=== PATIENT | male | born 1940 | race Caucasian/White ===

== ENCOUNTER 2019-11-12 11:41 | Emergency (ER) | payer MEDICARE, SELFPAY ==
--- NOTE | ~2019-11-12 | XR_ITS ---
XR wrist LT min 3V DATE: 11/12/2019 11:56 INDICATION: Fall. Left wrist injury, pain TECHNIQUE: 4 views COMPARISON: None FINDINGS: Diffuse osteopenia. There is osteoarthritis at the first carpometacarpal, first metacarpophalangeal and interphalangeal j oints. There is narrowing at the radioscaphoid joint consistent with osteoarthritis. No fracture, dislocation, periosteal reaction or bone destruction is detected. IMPRESSION: Polyarticular osteoarthritis; no fracture or dislocation is detected Reviewed, dictated and finalized at location B. MAKER IMPRESSION: Polyarticular osteoarthritis; no fracture or dislocation is detecte d
[2019-11-12 12:03] VITALS: BP 158/72; PULSE 100; RESP 20; TEMP 36.7; O2SAT 97
--- NOTE | 2019-11-12 14:17 | ED.GENADULT ---
HPI - General Adult General Chief complaint: Extremity Injury, Upper Stated complaint: left wrist inj Time Seen by Provider: 11/12/19 13:42 Source: patient Mode of arrival: ambulatory Limitations: no limitations History of Present Illness HPI narrative: Patient is a 79-year-old male who presents to emergency department for evaluation of left wrist pain noting aching pain to the left wrist worse with activity and movement that occurred after a step broke causing him to fall injuring the left wrist patient notes aching pain to the dorsal surface of the wrist with slight swelling patient denies other injuries or complaints and presents per private vehicle in no distress resting comfortably in the room Related Data Home Medications Medication Instructions Recorded Confirmed acetaminophen 325 mg capsule 325 mg PO Q6H PRN 08/02/19 08/14/19 aspirin 81 mg tablet,delayed 81 mg PO DAILY 08/02/19 08/14/19 release cholecalciferol (vitamin D3) 50 2,000 unit PO DAILY 08/02/19 08/14/19 mcg (2,000 unit) tablet esomeprazole magnesium 40 mg 40 mg PO DAILY 08/02/19 08/14/19 capsule,delayed release pitavastatin calcium 4 mg tablet 4 mg PO DAILY 08/02/19 08/14/19 Allergies Allergy/AdvReac Type Severity Reaction Status Date / Time No Known Allergies Allergy Unverified 11/12/19 13:32 Review of Systems Review of Systems: All systems reviewed & are unremarkable except as noted in HPI and below PMFSH Past Medical History Medical History Gastroesophageal reflux disease Social History Social History Smoking status: Heavy tobacco smoker Alcohol intake: current Exam Narrative: Exam Narrative: GENERAL: Well-appearing, well-nourished, and in no acute distress. HEAD: Normocephalic, atraumatic. EYES: PERRLA and EOMI. ENT: Nares clear, no rhinorrhea or epistaxis. Mucous membranes moist. EXTREMITIES: Normal range of motion. No edema. Swelling and tenderness over the dorsal aspect of the left wrist joint over the distal radius SKIN: Warm, dry, no rash. NEURO: No focal deficits. Alert and oriented x3. Neurovascularly intact. Capillary refill less than 2 seconds PSYCH: Normal mood and affect. Course Course Emergency Course: Patient in the room in no distress aware of case findings treatment plan and diagnosis Vital Signs Vital signs: Vital Signs Temperature 98.1 F 11/12/19 12:03 Pulse Rate 100 11/12/19 12:03 Respiratory Rate 20 11/12/19 12:03 Blood Pressure 158/72 H 11/12/19 12:03 Pulse Oximetry 97 11/12/19 12:03 Temperature 98.1 F 11/12/19 12:03 Pulse Rate 100 11/12/19 12:03 Respiratory Rate 20 11/12/19 12:03 Blood Pressure 158/72 H 11/12/19 12:03 Pulse Oximetry 97 11/12/19 12:03 Medical Decision Making MDM Narrative Medical decision making narrative: Patients injury or pain is consistent with musculoskeletal etiology. No signs of neurological or vascular compromise on exam. Compartments and tisues are soft without signs of compartment syndrome. Pain is felt appropriate for further evaluation on an outpatient basis. Vital Signs Vital Signs: Vital Signs Temperature 98.1 F 11/12/19 12:03 Pulse Rate 100 11/12/19 12:03 Respiratory Rate 20 11/12/19 12:03 Blood Pressure 158/72 H 11/12/19 12:03 Pulse Oximetry 97 11/12/19 12:03 Temperature 98.1 F 11/12/19 12:03 Pulse Rate 100 11/12/19 12:03 Respiratory Rate 20 11/12/19 12:03 Blood Pressure 158/72 H 11/12/19 12:03 Pulse Oximetry 97 11/12/19 12:03 Imaging Data Radiologist's impression: ITS Impressions Wrist X-Ray 11/12/19 12:03 IMPRESSION: Polyarticular osteoarthritis; no fracture or dislocation is detected Discharge Plan Discharge Clinical Impression: Left wrist injury Patient Disposition: Home, Self-Care Condition: Stable Instructions: Antibiotic Form, A
== END 2019-11-12 14:35 | disposition home or self-care (01) ==
PROVIDERS: Emergency Provider Family Medicine; PCP Family Medicine
DX: S69.92XA Unspecified injury of left wrist, hand and finger(s), initial encounter (principal); K21.9 Gastro-esophageal reflux disease without esophagitis; F17.200 Nicotine dependence, unspecified, uncomplicated; W10.9XXA Fall (on) (from) unspecified stairs and steps, initial encounter
CPT/HCPCS: 73110; 99283

== ENCOUNTER → 2020-08-13 12:07 | Outpatient (CLI) | payer MEDICARE, SELFPAY ==
--- NOTE | ~2020-08-13 | MR_ITS ---
EXAMINATION: MR lumbar spine wo [facility] EXAM DATE: 08/13/2020 13:26 INDICATION: Lumbar radiculopathy lumbar radiculopathy . TECHNIQUE: Multi-sequential, multiplanar MR images of the lumbar spine were obtained without contrast . Sagittal T1, T2, T2 fat saturation images. Axial T2 weighted images. Comparison is made to prior examination from 03/02/2019. FINDINGS: There is 5 mm anterolisthesis L4 on L5 without spondylolysis. Mild to moderate disc disease at this level, mild at the lumbar levels above this. The conus medullaris terminates at the L1/2 lev el and has normal signal intensity and morphology. Some scattered vertebral body hemangiomata. Rick basil soft tissue is unremarkable. Level by level evaluation: T12-L1: Disc does not extend beyond the endplate margin. Facet arthropathy: None. Neural foraminal stenosis: No stenosis. Central canal stenosis: No stenosis. L1-L2: There is a mild diffuse disc bulge. Facet arthropathy: Mild. Neural foraminal stenosis: No stenosis. Central canal stenosis: No stenosis. L2-L3: There is a mild diffuse disc bulge. Facet arthropathy: None. Neural foraminal stenosis: No stenosis. Central canal stenosis: No stenosis. L3-L4: There is a mild diffuse disc bulge. Facet arthropathy: Mild. Neural foraminal stenosis: Mild bilateral. Central canal stenosis: No stenosis. L4-L5: There is a mild to moderate diffuse disc bulge. Facet arthropathy: Moderate. Neural foraminal stenosis: Mild to moderate bilateral. Central canal stenosis: Mild to moderate. L5-S1: There is a mild diffuse disc bulge. Facet arthropathy: Mild to moderate. Neural foraminal stenosis: No stenosis. Central canal stenosis: No stenosis. Difficult to appreciate any significant interval change compared to prior study. IMPRESSION: 1. L4-5 grade 1 anterolisthesis, mild to moderate stenosis. Reviewed, dictated and finalized at location A. NE FIRE FIGHTER
== END ==
PROVIDERS: Visit Provider Nurse Practitioner Adult Health
DX: M54.16 Radiculopathy, lumbar region (principal); M43.16 Spondylolisthesis, lumbar region
CPT/HCPCS: 72148

== ENCOUNTER → 2020-08-28 15:05 | Outpatient (CLI) | payer MEDICARE, SELFPAY ==
--- NOTE | ~2020-08-28 | XR_ITS ---
EXAMINATION: XR lumbar spine 2-3V DATE: 08/28/2020 15:45 INDICATION: Low back pain with numbness and tingling down the left leg TECHNIQUE: 3 standing lateral views of the lumbar spine were obtained in neutral position and with fl exion and extension. COMPARISON: 08/13/2020 FINDINGS: 5 mm anterolisthesis L4 on L5 which is unchanged with flexion or extension. Vertebral body heights ar e normal. Mild to moderate disc height loss at L4-L5. Severe bilateral facet osteoarthritis at L4-L5 and L5-S1. Atherosclerotic aorta. IMPRESSION: 1. 5 mm anterolisthesis L4 on L5 which is unchanged with flexion or extension. Reviewed, dictated and finalized at location A. L GRINDER
== END ==
PROVIDERS: Visit Provider Nurse Practitioner Adult Health
DX: M54.5 Low back pain (principal)
CPT/HCPCS: 72100

== ENCOUNTER 2022-04-08 07:56 | Observation (INO) | payer MEDICARE, SELFPAY ==
[2022-04-08] VITALS (43 sets, daily range): BP systolic 93–149; BP diastolic 39–93; PULSE 78–114; RESP 18–28; TEMP 36.4–37; O2SAT 92–100; BMI 21.7; BMI 21.3
--- NOTE | 2022-04-08 | ECHO_ITS ---
Patient Info Name: Blas De Oliveira Age: 81 years : 1940 Gender: Male Ht: 68 in Wt: 147 lbs BSA: 1.79 m2 HR: 94 bpm BP: 147 / 74 mmHg Heart Rhythm: Sinus Rhythm Exam Date: 04/08/2022 2:53 PM Exam Location: [facility] Patient Status: Emergency Admit Date: 04/08/2022 Staff Ordering Physician: Birgit Richardson Motorcycle Service Technician: Rene Goetz, JR, RT Attending Provider: Noelle Lindsey MD Referring Physician: Debra HOUSTON; Exam Type: CA echo doppler color flow Study Info Indications R06.00 - Dyspnea, unspecified Complete two-dimensional, color flow and Doppler transthoracic echocardiogram is performed. Strain analysis performed. Summary 1. Technically difficult study with limited views. Regional wall motion assessment limited due to poor endomyocardial border definition in several views. 2. Left ventricular chamber dimension is normal. 3. Left ventricular systolic function is hyperdynamic, estimated at >70%. 4. There is mildly increased left ventricular wall thickness. 5. The left ventricular diastolic function is grade I diastolic dysfunction. 6. Global longitudinal strain is mildly elevated at -17 %. 7. There is mild mitral valve regurgitation. Left Ventricle Left ventricular chamber dimension is normal. Left ventricular systolic function is hyperdynamic, estimated at >70%. There is mildly increased left ventricular wall thickness. The left ventricular diastolic function is grade I diastolic dysfunction. Global longitudinal strain is mildly elevated at -17 %. Technically difficult study with limited views. Regional wall motion assessment limited due to poor endomyocardial border definition in several views. Right Ventricle Right ventricular chamber dimension is normal. Right ventricular systolic function is normal. Left Atria Left atrial chamber dimension is mildly enlarged. Right Atria Right atrial chamber dimension is mildly enlarged. Aortic Valve The aortic valve is not well visualized. There is mild aortic valve sclerosis. There is no aortic valve stenosis. There is no aortic valve regurgitation. Pulmonic Valve The pulmonic valve is not well visualized. Mitral Valve The mitral valve has normal leaflets. There is mild mitral valve regurgitation. The mitral valve annulus is mildly calcified. Tricuspid Valve The tricuspid valve leaflets are normal. There is trace tricuspid valve regurgitation. Unable to estimate PA systolic pressure due to poor spectral resolution of tricuspid regurgitant jet velocity. Pericardium/Pleural The pericardium appears normal. There is no pericardial effusion. Aorta The aortic root size at the sinus of Valsalva is mildly dilated. There is mild-moderate aortic atherosclerosis. Left Ventricular Outflow Tract Name Value Normal LVOT 2D LVOT Diameter 2.1 cm LVOT Doppler LVOT Peak Gradient 8 mmHg LVOT Mean Gradient 4 mmHg LVOT VTI 28 cm LVOT VTI/AV VTI Ratio 0.9 LVOT Stroke Volume 101
--- NOTE | ~2022-04-08 | CT_ITS ---
EXAMINATION: CTA chest PE protocol DATE: 04/08/2022 11:36 INDICATION: Dyspnea. Fever, cough Positive d-dimer. TECHNIQUE: Computed tomography angiography (CTA) of the chest was performed with 100 mL Omnipaque-350 intravenous contrast timed to evaluate the pulmonary arteries. Coronal maximum intensity projection 3D-reconstructions were created by the technologist. Automated exposure control and iterative reconst ruction technique were employed. Exam dose: 259.62 mGy-cm total exam DLP. COMPARISON: 04/08/2022 portable AP chest. FINDINGS: There is diagnostic contrast enhancement of the pulmonary arteries. No central pulmonary e mbolism. The peripheral pulmonary arteries are not optimally demonstrated, particularly in the lower lobes, due to prominent motion. Status post sternotomy. There is prominent atherosclerotic calcification of the thoracic aorta, great vessels and coronary ar teries. No thoracic aortic aneurysm or dissection. Normal heart size. No pericardial or pleural effusion. Bilateral apical scarring. Emphysematous changes. No pulmonary consolidation is noted. Limited stevo luation of the lungs due to motion. Calcified hepatic and splenic granulomas. Normal morphology of the adrenal glands. Small sliding hiatal hernia. 3.8 and 1.6 cm right renal cysts. Very prominent calcification of the abdominal aorta and severe calcification of the renal arteries an d superior mesenteric artery. Severe degenerative disc disease of lower cervical spine. Degenerative spurring of thoracic spine. No suspicious osteolytic or osteosclerotic lesions. IMPRESSION: No central pulmonary embolism Emphysema Status post sternotomy Small sliding hiatal hernia Right renal cysts Reviewed, dictated and finalized at Location A. Reviewed, dictated and finalized at location A.
--- NOTE | ~2022-04-08 | XR_ITS ---
EXAMINATION: XR chest 1V portable DATE: 04/08/2022 08:33 INDICATION: Cough TECHNIQUE: frontal view of the chest was obtained. COMPARISON: Chest radiograph dated 09/24/2011 FINDINGS: Perihilar mild bronchial wall thickening. No focal airspace opacities, pulmonary edema, pleural effus ion or pneumothorax. The cardiomediastinal silhouette is normal. Median sternotomy wires and mediasti nal surgical clips are seen, likely from prior coronary artery bypass grafting. IMPRESSION: 1. Mild perihilar bronchial wall thickening without focal airspace disease which could be seen with juan massey. Reviewed, dictated and finalized at location B. IMPRESSION: 1. Mild perihilar bronchial wall thickening without focal airspace disease whic h could be seen with bronchitis.
--- NOTE | 2022-04-08 08:21 | ECG_ITS ---
Measurements Intervals [place] Rate: 108 P: 26 SC: 160 QRS: 74 QRSD: 101 T: 73 QT: 327 QTc: 440 Interpretive Statements SINUS TACHYCARDIA BORDERLINE ST-T WAVE ABNORMALITY- ANTEROLATERAL LEADS BASELINE ARTIFACT- II, III, V4-V6 ABNORMAL ECG Electronically Signed On 04-08-2022 16:28:42 CDT by Gavin Bagley D.O.
--- NOTE | 2022-04-08 08:21 | ED.FEVER ---
HPI - Fever General Chief Complaint: Fever Stated Complaint: Im Sick , Cold, Cough, Vomiting Time Seen by Provider: 04/08/22 07:58 History of Present Illness HPI Narrative: The patient is an 81-year-old male with a history of hypertension, hyperlipidemia presenting to the emergency department for evaluation of shortness of breath. Patient states that he has had cough, runny nose, borderline fever over the past 36 hours. 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 He reports difficulty breathing and dry cough. He denies wheezing or history of COPD. He does not utilize any home oxygen. He reports shortness of breath worsens with any activity. He denies leg swelling, calf pain, recent car or air travel, no recent history of surgical procedures. He denies history of blood clot or DVT. He denies history of heart attack and denies any current chest pain. He does report nausea as well as a few episodes of nonbloody, nonbilious emesis but denies any abdominal pain. Patient reports history of COVID vaccination and denies history of symptomatic COVID infection. Related Data Home Medications Medication Instructions Recorded Confirmed acetaminophen 325 mg capsule 325 mg PO Q6H PRN Pain 08/02/19 04/08/22 aspirin 81 mg tablet,delayed 81 mg PO HS 08/02/19 04/08/22 release (Adult Aspirin Regimen) cholecalciferol (vitamin D3) 50 2,000 unit PO HS 02/19/20 04/08/22 mcg (2,000 unit) tablet cyanocobalamin (vitamin B-12) 1,000 mcg PO HS 02/11/22 04/08/22 1,000 mcg tablet amlodipine 10 mg-benazepril 40 mg 1 cap PO HS 04/08/22 04/08/22 capsule celecoxib 200 mg capsule 200 mg PO HS PRN pain 04/08/22 04/08/22 pitavastatin calcium 4 mg tablet 4 mg PO HS 04/08/22 04/08/22 (Livalo) tramadol 50 mg tablet (Ultram) 100 mg PO QID PRN pain 04/08/22 04/08/22 Allergies Allergy/AdvReac Type Severity Reaction Status Date / Time No Known Allergies Allergy Unverified 04/08/22 16:26 Review of Systems Review of Systems: CONSTITUTIONAL: Reports subjective fever and chills EYES: Denies visual changes, redness, or discharge. ENT: Reports rhinorrhea, congestion, denies sore throat CARDIOVASCULAR: Denies chest pain, palpitations, or edema. RESPIRATORY: Reports cough and shortness of breath GASTROINTESTINAL: Denies abdominal pain, reports nausea and vomiting, denies diarrhea GENITOURINARY: Denies dysuria or hematuria. SKIN: Denies rash or itching. MUSCULOSKELETAL: Denies back pain, joint pain, or myalgia. NEUROLOGIC: Denies headache, numbness, or weakness. [facility] Past Medical History Medical History BMI 24.0-24.9, adult BMI 25.0-25.9,adult Gastroesophageal reflux disease Peripheral arterial disease (~12/08/20) SAEED 0.55 left foot on home a visit by insurance 12/08/2020 Vitamin B12 deficiency anemia Vitamin B12 low at 155 on 08/10/2021 Vitamin D deficiency, unspecified Social History Social History Smoking packs per day: 1.5 Smoking cigarettes per day: 30.0 Years smoked: 60 Smoking pack-years: 90.00 Smoking status: Current every day smoker Tobacco type: cigarettes Alcohol intake: current Drinks per week: 0 Substance use: never Spiritual care concerns: No Exam Narrative: GENERAL: Awake, alert, unwell appearing HEAD: Normocephalic, atraumatic. EYES: PERRLA and EOMI. ENT: Nares clear, no rhinorrhea or epistaxis. Mucous membranes dry NECK: Supple. CHEST: Tachypneic, hypoxic, 89% on room air, coarse respirations bilaterally with diminished breath sounds in the lung bases, no expiratory wheezing, no crackles HEART: Regular rate, sinus rhythm ABDOMEN:Non distended, non tender EXTREMITIES: Normal range of motion. No edema. SKIN: Warm, dry, no rash. NEURO:No focal deficits. Alert and oriented x3 Course Vital Sign
[2022-04-08] MEDS: SODIUM CHLORIDE 0.9% IV 1,000 ML 999 ML IV CONT (08:44)
[2022-04-08] MEDS: ONDANSETRON INJ 4 MG/2 ML VIAL IV PUSH (08:44)
[2022-04-08] MEDS: methylPREDNISolone SOD SUCC 125 MG VIAL IV PUSH (09:02)
[2022-04-08 09:16] LABS: Appearance Urine Clear (Clear); Bilirubin Urine 1+ (Negative); Blood Urine Trace-lysed (Negative); Color Urine Yellow (Yellow); Glucose Urine UA Negative (Negative); Ketones Urine Negative (Negative); Leukocyte Esterase Ur 1+ LEU/UL (Negative); Nitrate Urine Negative (Negative); Protein Urine 1+ mg/dL (Negative); pH Urine 5.5 (5.0-9.0)
[2022-04-08 09:17] LABS: Basophils Absolute Auto 0.1 K/mm3 (0.0-0.1); Basophils Percent Auto 0.3 % (0.2-1.2); Eosinophils Absolute Auto 0.2 K/mm3 (0-0.3); Hematocrit 41.2 % (42.0-52.0); Immature Granulocyte Absolute 0.14 K/mm3 (0.00-0.031); Immature Granulocyte Percent A 0.7 % (0-0.5); Lymphocytes Absolute Auto 1.14 K/mm3 (0.9-3.2); Mean Corpuscular HGB Conc 31.6 g/dl (32-36); Mean Corpuscular Hemoglobin 29.1 pg (26-34); Mean Corpuscular Volume 92.4 fl (80-100); Mean Platelet Volume 10.6 fl (7.4-10.4); Monocytes Absolute Auto 2.1 K/mm3 (0.1-0.6); Neutrophils Absolute Auto 15.3 K/mm3 (1.3-6.7); Platelet Count Result 182 k/mm3 (150-375); Red Blood Count 4.46 M/mm3 (4.6-6.20); Red Cell Distribution Width 13.1 % (11.5-14.5); White Blood Count 18.9 K/mm3 (4.5-10.0)
[2022-04-08 09:22] LABS: Mucus Urine Rare /lpf; Squamous Epithelial Cell Urine Rare /hpf (Few)
[2022-04-08 09:28] LABS: Lactic Acid Reflex 1.3 mmol/L (0.7-2.0)
[2022-04-08 09:31] LABS: Alanine Aminotransferase 9 U/L (6-50); Albumin Level 4.4 g/dL (3.5-5.1); Alkaline Phosphatase 70 U/L (38-126); Anion Gap 8 mmol/L (8-16); Aspartate Amino Transferase 22 U/L (17-59); Bilirubin,Total 0.7 mg/dL (0.2-1.3); Blood Urea Nitrogen 23 mg/dL (9-20); CRP 6.5 mg/dL (<1.0); Calcium 9.1 mg/dL (8.4-10.2); Carbon Dioxide 28 mmol/L (22-30); Chloride 103 mmol/L (98-107); Estimated CRCL calculation 47 ml/min; Estimated Glomerular Filt Rate > 60; Glucose 123 mg/dL (65-110); Potassium 4.5 mmol/L (3.4-5.0); Sodium 139 mmol/L (137-145)
[2022-04-08 09:35] LABS: Add Urine Microscopic? YES
[2022-04-08 09:39] LABS: INR 1.1; NT Pro B Type Natriuretic Pept 1990 pg/mL (5-100)
[2022-04-08 09:40] LABS: Partial Thromboplastin Time 27.5 SECONDS (22.3-36.8)
[2022-04-08 09:44] LABS: Troponin I 0.157 ng/mL (0.000-0.034)
--- NOTE | 2022-04-08 09:49 | PC.NURSE ---
audra MCMAHON called regarding outstanding order for breathing treatment.
[2022-04-08 09:56] LABS: SARS-CoV-2 RNA PCR Negative
[2022-04-08] MEDS: ALBUTEROL SULFATE NEB 2.5 MG/3 ML INH 5 MG INHALATION ×3 (10:04→20:01)
[2022-04-08] MEDS: IPRATROPIUM BR 0.02% INH SOLN 0.5 MG/2.5 ML VIAL INHALATION ×2 (10:04→20:00)
[2022-04-08 10:48] LABS: D Dimer 0.64 ug/mL (<0.48)
--- NOTE | 2022-04-08 13:17 | PM.IMHP ---
H&P: HPI History of Present Illness Date/Time: 04/08/22 13:00 Chief Complaint: Fever and Dyspnea Narrative: This 81-year-old male patient with significant past medical history of hypertension, hyperlipidemia, coronary artery disease status post bypass in the 1960s, and chronic nicotine abuse presents to the emergency room complaints of having subjective fever, stating he is sick, has had vomiting, chronic cough and shortness of breath. He had worsened over the past 24-48 hours since he has developed all of his symptoms including a productive cough, runny nose, scratchy throat, back pain and vomiting after he takes his medications. He has felt feverish although has not checked his temperature. He is a chronic smoker and nicotine and has smoked 1 and half packs per day for the past 60 years. Patient has had full COVID vaccination and has not had any COVID infection today. In the emergency room workup was started and is significant for an elevated white blood cell count 18.9 without left shift a D-dimer that is 0.64, troponin 0.157, CRP 6.5 and BNP 1990. Patient denies any known history of heart failure. Chest x-ray demonstrates perihilar bronchial wall thickening without focal airspace disease as seen in bronchitis, and CTA of the chest that was performed secondary to elevated D-dimer demonstrates emphysema and a noted status post sternotomy. Patient has blood cultures pending, urine culture pending as is urine did result 1+ leukocytes was 7-9 wbc's and only rare squamous epithelium. His COVID was negative and urine for Legionella and streptococcal disease is pending. He was given Solu-Medrol, DuoNeb and azithromycin in the emergency room and is currently being admitted to hospitalist service for comanagement of acute respiratory infection and COPD exacerbation. Cardiology was consulted in the emergency room by the ER physician. At the time of my examination patient denies any chest pain or nausea, but does endorse persistent cough that is currently dry and he has back pain. He is not requiring any supplemental oxygenation. He also denies any urinary symptoms of burning, urgency, frequency, hematuria. Review of Systems Review of Systems: All systems reviewed & are unremarkable except as noted in HPI and below PMFSH Past Medical History Medical History (Updated 04/08/22 @ 13:42 by Birgit Richardson, TRANSIT DEPARTMENT CLERK-C) BMI 24.0-24.9, adult BMI 25.0-25.9,adult Gastroesophageal reflux disease Peripheral arterial disease (~12/08/20) SAEED 0.55 left foot on home a visit by insurance 12/08/2020 Vitamin B12 deficiency anemia Vitamin B12 low at 155 on 08/10/2021 Vitamin D deficiency, unspecified Social History Social History Smoking packs per day: 1 Smoking cigarettes per day: 20.0 Years smoked: 60 Smoking pack-years: 60.00 Smoking status: Current every day smoker Tobacco type: cigarettes Alcohol intake: current Meds Home Medications and Allergies Home Medications Medication Instructions Recorded Confirmed Type acetaminophen 325 mg capsule 325 mg PO Q6H PRN pain 08/02/19 02/11/22 History aspirin 81 mg tablet,delayed 81 mg PO DAILY 08/02/19 02/11/22 History release (Adult Aspirin Regimen) cholecalciferol (vitamin D3) 50 2,000 unit PO DAILY 02/19/20 02/11/22 History mcg (2,000 unit) tablet amlodipine 10 mg-benazepril 40 mg 1 cap PO DAILY #90 caps 09/04/21 02/11/22 Rx capsule celecoxib 200 mg capsule 200 mg PO DAILY PRN pain #90 caps 09/04/21 02/11/22 Rx pitavastatin calcium 4 mg tablet 4 mg PO DAILY #90 tabs 09/04/21 02/11/22 Rx (Livalo) tramadol 50 mg tablet See Rx Instructions PO .COMPLEX 10/05/21 02/11/22 Rx PRN pain #240 tabs cyanocobalamin (vitamin B-12) 1,000 mcg PO DAILY 02/11/22 02/11/22 History 1,000 mcg tablet Allergies Allergy/AdvReac Type Severity Reaction Status Date / Time No Known Allergies Allergy Unverified
[2022-04-08 15:41] LABS: Troponin I 0.194 ng/mL (0.000-0.034)
--- NOTE | 2022-04-08 16:16 | ADMGEN ---
This patient, Blas De Oliveira, was admitted to IMU Room 232-01 @ 1600. Patient/family oriented to hospital policies and general routines including ID bracelet, bed and alarms, visiting hours, pain management, procedures, bathroom and other care routines, personal items, smoking policy, room service/diet, and visiting hours. Information on how to activate the Rapid Response Team has been discussed. Patient/Family are encouraged to report perceived risks to care and to ask questions if they do not understand what they are told or what they should do.
[2022-04-08] MEDS: NICOTINE (*PBKC) 21 MG PATCH 1 PATCH TRANSDERM (17:29)
[2022-04-08] MEDS: traMADol HCL (*CRX) 50 MG TABLET 100 MG PO (21:05)
[2022-04-08] MEDS: CYANOCOBALAMIN 1,000 MCG TABLET 1000 MCG PO (21:06)
[2022-04-08] MEDS: CHOLECALCIFEROL 1,000 UNITS TABLET 2000 UNITS PO (21:06)
[2022-04-08] MEDS: lisinopriL 20 MG TABLET 40 MG PO (21:07)
[2022-04-08] MEDS: amLODIPine BESYLATE 5 MG TABLET 10 MG PO (21:08)
[2022-04-08] MEDS: PANTOPRAZOLE 40 MG TABLET PO (21:08)
[2022-04-08] MEDS: ATORVASTATIN 20 MG TABLET PO (21:09)
[2022-04-09] VITALS (23 sets, daily range): BP systolic 97–118; BP diastolic 44–53; PULSE 81–105; RESP 12–20; TEMP 36.1–36.8; O2SAT 88–99; BMI 20.7
[2022-04-09] MEDS: IPRATROPIUM BR 0.02% INH SOLN 0.5 MG/2.5 ML VIAL INHALATION ×4 (02:08→21:24)
[2022-04-09] MEDS: ALBUTEROL SULFATE NEB 2.5 MG/3 ML INH 5 MG INHALATION ×4 (02:08→21:24)
[2022-04-09 05:05] LABS: Basophils Percent Auto 0.1 % (0.2-1.2); Hematocrit 35.3 % (42.0-52.0); Hemoglobin 11.3 g/dL (14.0-18.0); Immature Granulocyte Absolute 0.08 K/mm3 (0.00-0.031); Immature Granulocyte Percent A 0.6 % (0-0.5); Lymphocytes Absolute Auto 0.77 K/mm3 (0.9-3.2); Lymphocytes Percent Auto 5.4 % (18.3-44.2); Mean Corpuscular Hemoglobin 29.2 pg (26-34); Mean Corpuscular Volume 91.2 fl (80-100); Monocytes Absolute Auto 1.2 K/mm3 (0.1-0.6); Monocytes Percent Auto 8.2 % (2.6-8.5); Neutrophils Absolute Auto 12.2 K/mm3 (1.3-6.7); Neutrophils Percent Auto 85.7 % (45.5-73.1); Platelet Count Result 162 k/mm3 (150-375); Red Blood Count 3.87 M/mm3 (4.6-6.20); Red Cell Distribution Width 13.2 % (11.5-14.5); White Blood Count 14.2 K/mm3 (4.5-10.0)
[2022-04-09 05:19] LABS: Alanine Aminotransferase 13 U/L (6-50); Albumin Level 3.6 g/dL (3.5-5.1); Alkaline Phosphatase 59 U/L (38-126); Anion Gap 9 mmol/L (8-16); Aspartate Amino Transferase 24 U/L (17-59); Bilirubin,Total 0.2 mg/dL (0.2-1.3); Blood Urea Nitrogen 31 mg/dL (9-20); Calcium 8.9 mg/dL (8.4-10.2); Carbon Dioxide 26 mmol/L (22-30); Chloride 106 mmol/L (98-107); Estimated CRCL calculation 41 ml/min; Estimated Glomerular Filt Rate > 60; Glucose 136 mg/dL (65-110); Magnesium 1.8 mg/dL (1.6-2.3); Potassium 4.1 mmol/L (3.4-5.0); Sodium 141 mmol/L (137-145)
[2022-04-09] MEDS: methylPREDNISolone SOD SUCC 125 MG VIAL 60 MG IV PUSH ×2 (08:44→17:45)
[2022-04-09] MEDS: ENOXAPARIN 40 MG/0.4 ML SYRINGE SUB-Q (08:44)
--- NOTE | 2022-04-09 10:56 | PM.IMPN ---
Progress Note: A&P Assessment and Plan (1) COPD exacerbation: Code(s): J44.1 - Chronic obstructive pulmonary disease with (acute) exacerbation Status: Acute Assessment and Plan: Monitor vital signs, I&Os, neuro status and patient is a fall risk Monitor serum electrolytes, cultures and CBC Monitor Oxygen saturation, Oxygen via NC; wean oxygen as tolerated, keep SpO2 greater than 88% Send sputum cultures if possible Levaquin q24H or Azithromycin 500mg Duonebz q6H and Albuterol q2H prn Solu-Medrol 60 mg IVq12H, will deescalate IV steroids Consider pulmonary consult as patient has not received a formal pulmonary function testing COVID PCR negative in the emergency department (2) Acute bronchitis: Qualifiers: Bronchitis organism: unspecified organism Qualified Code(s): J20.9 - Acute bronchitis, unspecified Code(s): J20.9 - Acute bronchitis, unspecified Status: Acute Assessment and Plan: - Urine for Legionella and streptococcal pneumonia pending. - blood cultures x2 pending. - Sputum sample ordered. - Concurrently with leukocytosis without left shift. Continue to monitor labs and vital signs. - CRP elevated at 6.5 suggesting bacterial infection. - Continue treatment above for problem 1. - COVID negative (3) Elevated troponin: Code(s): R77.8 - Other specified abnormalities of plasma proteins Status: Acute Assessment and Plan: - In setting of no chest pain. Low suspicion for ACS. - Patient with history of coronary artery disease, heart score of 6. - Cardiology is consulted. - Echocardiogram ordered - Telemetry - trend Serial troponins and EKGs. (4) Nicotine abuse: Code(s): Z72.0 - Tobacco use Status: Acute Assessment and Plan: - greater than 10 minutes of counseling provided for cessation smoking. - Nicotine patch 21 g ordered. (5) Abnormal urine finding: Code(s): R82.90 - Unspecified abnormal findings in urine Status: Acute Assessment and Plan: - Urinalysis is suspicious for acute urinary tract infection, With 1+ leukocyte esterase, 7-9 WBCs and only rare squamous epithelium. - Rocephin to patient's antibiotic regimen to accompany Azithromycin. - Urine culture is pending. Await results (6) CAD (coronary artery disease): Code(s): I25.10 - Atherosclerotic heart disease of [place] coronary artery without angina pectoris Status: Chronic Assessment and Plan: - chronic history with status post bypass in the 1960s. - Patient follows with cub reporter, Dr. Jain. - Cardiology currently consulted secondary to elevation of troponin at 0.157. - Will trend serial troponins. - No ischemic EKG changes, however there was noted mild ST depression. (7) HTN (hypertension): Code(s): I10 - Essential (primary) hypertension Status: Acute Assessment and Plan: - Monitor vital signs. - Continue home medications of amlodipine 10 mg and benazepril 40 mg. (8) HLD (hyperlipidemia): Code(s): E78.5 - Hyperlipidemia, unspecified Status: Acute Assessment and Plan: - Continue statin therapy for HLD, but instead of Pitavastatin 4 mg po Daily, substitute another moderate intensity statin such as Atorvastatin 20 mg po daily. (9) B12 deficiency: Code(s): E53.8 - Deficiency of other specified B group vitamins Status: Acute Assessment and Plan: - Check B12 level - Continue home supplementation of Cyanocobalamin 1000 mcg daily (10) Vitamin D deficiency: Code(s): E55.9 - Vitamin D deficiency, unspecified Status: Acute Assessment and Plan: - Check Vitamin D level - Continue home supplementation of Cholecalciferol 50 mcg/2000 units po daily (11) GERD (gastroesophageal reflux disease): Code(s): K21.9 - Gastro-esophageal reflux disease without esophagitis Status: Acute Assessment and Plan:
--- NOTE | 2022-04-09 11:12 | PM.CNCAR ---
Assessment and Plan Assessment and plan (1) Elevated troponin: Code(s): R77.8 - Other specified abnormalities of plasma proteins Status: Acute (2) CAD (coronary artery disease): Code(s): I25.10 - Atherosclerotic heart disease of [place] coronary artery without angina pectoris Status: Chronic Plan This is an 81-year-old man who comes into the hospital with noncardiac symptoms. He had a fever at home for a couple of days some shortness of breath nonproductive cough and some nausea. Troponin levels were sampled and are slightly out of normal range. I do not believe there is any other evidence to suggest an acute coronary syndrome and I do not believe we need to recommend conducting an ischemia evaluation while he is here given this situation. Is seems clear to me that he has significant obstructive lung disease based on his physical exam and chest x-ray appearance. Obviously that none of this is surprising given his long history of cigarette smoking. At this point he does not need any further cardiac workup in the hospital he already has follow-up in my office for longitudinal monitoring/follow-up of his coronary artery disease. I do not plan to continue all the hospital if you need my assistance with any other cardiac issues/concerns please let me know Chance Jain MD [facility] History of Present Illness History of Present Illness Consult date/time: 04/09/22 11:12 Reason For Visit: elevated troponin,copd exacerbation Narrative: This is a 81-year-old man I am seeing at the request of the hospitalist because of elevated troponin level. He is known to me with a history of coronary artery disease and follows in my office regularly. I just saw him as it happens last month in the office at which time he had no cardiovascular complaints. He was found to have multivessel coronary artery disease in 2000 at which time he was referred for surgical revascularization. That was performed in [place] I believe he had a successful but somewhat challenging operation as he had a heavily calcified aorta and had to have a pericardial patch placed in the aorta status a create a location where anastomotic sites could be created. In any event he has been doing well since then with respect to his heart status and has not had any complaints. Most unfortunately Mr. De Oliveira has heavily continue to smoke cigarettes and despite admonitions of all of his doctors has not been able to quit. He came into the hospital yesterday with symptoms of feeling poorly with coughing some shortness of breath some nausea and a fever he states he took his temperature at home and it was about 100.6. He was seen in the emergency room and admitted to the hospital for reasons that are not obvious to me troponin levels are sampled and they were elevated at 0.1 and are flat. He is not having any ischemic chest pain symptoms his electrocardiogram shows sinus tachycardia with some nonspecific ST segment changes. An echocardiogram demonstrates hyperdynamic left ventricular systolic function without any wall motion abnormalities. Review of Systems Constitutional: Constitutional: Reports fatigue Eyes: Eyes: Reports no additional eye complaints ENT: Reports system reviewed and no additional complaints, except as documented Cardiovascular: Cardiovascular: Reports no additional cardiovascular complaints Respiratory: Respiratory: Reports cough and Reports dyspnea Gastrointestinal: Gastrointestinal: Reports nausea Musculoskeletal: Musculoskeletal: Reports no additional musculoskeletal complaints Integumentary/Breasts: Skin/Breast: Reports system reviewed and no additional complaints, except as docu Neurologic: Reports system reviewed and no additional complaints, except as documented Endocrine: Endocrine: Reports no additional endocrine complaints Hematologic/Lymphatic: Hematologic/Lymphatic: Reports no additional hematologic/lymphatic complaints Allergic/Immu
--- NOTE | 2022-04-09 12:04 | PCNSR ---
On 04/09/22, the student, Kira Ordoñez, provided care and completed [facility] documentation on this patient. I have reviewed the student's documentation and agree with the findings.
[2022-04-09] MEDS: amLODIPine BESYLATE 5 MG TABLET 10 MG PO (20:29)
[2022-04-09] MEDS: CYANOCOBALAMIN 1,000 MCG TABLET 1000 MCG PO (20:31)
[2022-04-09] MEDS: lisinopriL 20 MG TABLET 40 MG PO (20:31)
[2022-04-09] MEDS: PANTOPRAZOLE 40 MG TABLET PO (20:31)
[2022-04-09] MEDS: ATORVASTATIN 20 MG TABLET PO (20:32)
[2022-04-09] MEDS: CHOLECALCIFEROL 1,000 UNITS TABLET 2000 UNITS PO (20:32)
[2022-04-10] VITALS (9 sets, daily range): BP systolic 97–147; BP diastolic 47–61; PULSE 84–108; RESP 16–20; TEMP 36.2–37; O2SAT 93–99
[2022-04-10] MEDS: IPRATROPIUM BR 0.02% INH SOLN 0.5 MG/2.5 ML VIAL INHALATION ×2 (02:40→07:45)
[2022-04-10] MEDS: ALBUTEROL SULFATE NEB 2.5 MG/3 ML INH 5 MG INHALATION ×2 (02:40→07:45)
[2022-04-10 08:08] LABS: Basophils Percent Auto 0.1 % (0.2-1.2); Hematocrit 38.2 % (42.0-52.0); Hemoglobin 11.8 g/dL (14.0-18.0); Immature Granulocyte Absolute 0.08 K/mm3 (0.00-0.031); Immature Granulocyte Percent A 0.6 % (0-0.5); Lymphocytes Absolute Auto 0.83 K/mm3 (0.9-3.2); Mean Corpuscular HGB Conc 30.9 g/dl (32-36); Mean Corpuscular Hemoglobin 29.1 pg (26-34); Mean Corpuscular Volume 94.3 fl (80-100); Mean Platelet Volume 10.6 fl (7.4-10.4); Monocytes Absolute Auto 0.8 K/mm3 (0.1-0.6); Neutrophils Percent Auto 87.3 % (45.5-73.1); Platelet Count Result 190 k/mm3 (150-375); Red Blood Count 4.05 M/mm3 (4.6-6.20); Red Cell Distribution Width 13.2 % (11.5-14.5); White Blood Count 13.8 K/mm3 (4.5-10.0)
--- NOTE | 2022-04-10 08:13 | PM.DS ---
DS: Admitting Diagnosis Discharge Date 04/10/2022 Admitting Diagnosis COPD exacerbation Acute bronchitis UTI Tobacco dependence DS: Discharge Diagnosis Discharge Diagnosis (1) COPD exacerbation: Code(s): J44.1 - Chronic obstructive pulmonary disease with (acute) exacerbation Status: Acute Assessment and Plan: Monitor vital signs, I&Os, neuro status and patient is a fall risk Monitor serum electrolytes, cultures and CBC Monitor Oxygen saturation, Oxygen via NC; wean oxygen as tolerated, keep SpO2 greater than 88% Send sputum cultures if possible Levaquin q24H or Azithromycin 500mg Duonebz q6H and Albuterol q2H prn Solu-Medrol 60 mg IVq12H, will deescalate IV steroids Consider pulmonary consult as patient has not received a formal pulmonary function testing COVID PCR negative in the emergency department (2) Acute bronchitis: Qualifiers: Bronchitis organism: unspecified organism Qualified Code(s): J20.9 - Acute bronchitis, unspecified Code(s): J20.9 - Acute bronchitis, unspecified Status: Acute Assessment and Plan: - Urine for Legionella and streptococcal pneumonia pending. - blood cultures x2 pending. - Sputum sample ordered. - Concurrently with leukocytosis without left shift. Continue to monitor labs and vital signs. - CRP elevated at 6.5 suggesting bacterial infection. - Continue treatment above for problem 1. - COVID negative (3) Elevated troponin: Code(s): R77.8 - Other specified abnormalities of plasma proteins Status: Acute Assessment and Plan: - In setting of no chest pain. Low suspicion for ACS. - Patient with history of coronary artery disease, heart score of 6. - Cardiology is consulted. - Echocardiogram ordered - Telemetry - trend Serial troponins and EKGs. (4) Nicotine abuse: Code(s): Z72.0 - Tobacco use Status: Acute Assessment and Plan: - greater than 10 minutes of counseling provided for cessation smoking. - Nicotine patch 21 g ordered. (5) Abnormal urine finding: Code(s): R82.90 - Unspecified abnormal findings in urine Status: Acute Assessment and Plan: - Urinalysis is suspicious for acute urinary tract infection, With 1+ leukocyte esterase, 7-9 WBCs and only rare squamous epithelium. - Rocephin to patient's antibiotic regimen to accompany Azithromycin. - Urine culture is pending. Await results (6) CAD (coronary artery disease): Code(s): I25.10 - Atherosclerotic heart disease of [place] coronary artery without angina pectoris Status: Chronic Assessment and Plan: - chronic history with status post bypass in the 1960s. - Patient follows with filing writer, Dr. Jain. - Cardiology currently consulted secondary to elevation of troponin at 0.157. - Will trend serial troponins. - No ischemic EKG changes, however there was noted mild ST depression. (7) HTN (hypertension): Code(s): I10 - Essential (primary) hypertension Status: Acute Assessment and Plan: - Monitor vital signs. - Continue home medications of amlodipine 10 mg and benazepril 40 mg. (8) HLD (hyperlipidemia): Code(s): E78.5 - Hyperlipidemia, unspecified Status: Acute Assessment and Plan: - Continue statin therapy for HLD, but instead of Pitavastatin 4 mg po Daily, substitute another moderate intensity statin such as Atorvastatin 20 mg po daily. (9) B12 deficiency: Code(s): E53.8 - Deficiency of other specified B group vitamins Status: Acute Assessment and Plan: - Check B12 level - Continue home supplementation of Cyanocobalamin 1000 mcg daily (10) Vitamin D deficiency: Code(s): E55.9 - Vitamin D deficiency, unspecified Status: Acute Assessment and Plan: - Check Vitamin D level - Continue home supplementation of Cholecalciferol 50 mcg/2000 units po daily (11) GERD (gastroesophag
[2022-04-10 08:22] LABS: Alanine Aminotransferase 17 U/L (6-50); Alkaline Phosphatase 61 U/L (38-126); Anion Gap 10 mmol/L (8-16); Aspartate Amino Transferase 26 U/L (17-59); Bilirubin,Total 0.3 mg/dL (0.2-1.3); Blood Urea Nitrogen 45 mg/dL (9-20); Calcium 9.3 mg/dL (8.4-10.2); Carbon Dioxide 27 mmol/L (22-30); Chloride 106 mmol/L (98-107); Estimated CRCL calculation 37 ml/min; Estimated Glomerular Filt Rate 58; Glucose 126 mg/dL (65-110); Potassium 4.9 mmol/L (3.4-5.0); Sodium 143 mmol/L (137-145)
[2022-04-10] MEDS: ENOXAPARIN 40 MG/0.4 ML SYRINGE SUB-Q (08:57)
[2022-04-10] MEDS: methylPREDNISolone SOD SUCC 125 MG VIAL 60 MG IV PUSH (08:58)
[2022-04-10 18:26] LABS: Pneumococcal Antigen Urine Not Detected (Not Detected)
[2022-04-13 21:26] LABS: Legionella pneumophila Ag Ur Not Detected (Not Detected)
[2022-04-13 23:28] LABS: Vitamin D 1,25 (OH)2 Total 39 pg/mL (18-72); Vitamin D2 1,25 (OH)2 <8 pg/mL; Vitamin D3 1,25 (OH)2 39 pg/mL
== END 2022-04-10 10:40 | disposition home or self-care (01) ==
LOC: ANHED 08:19 → ANHIMU 15:50
PROVIDERS: Nurse Practitioner Adult Health; Admitting Provider Internal Medicine; Emergency Provider Emergency Medicine; PCP Family Medicine; Visit Provider Nurse Practitioner Family
DX: J44.1 Chronic obstructive pulmonary disease with (acute) exacerbation (principal); J20.9 Acute bronchitis, unspecified; R77.8 Other specified abnormalities of plasma proteins; F17.210 Nicotine dependence, cigarettes, uncomplicated; R82.90 Unspecified abnormal findings in urine; I25.10 Atherosclerotic heart disease of native coronary artery without angina pectoris; Z95.1 Presence of aortocoronary bypass graft; I10 Essential (primary) hypertension; E78.5 Hyperlipidemia, unspecified; E53.8 Deficiency of other specified B group vitamins; E55.9 Vitamin D deficiency, unspecified; K21.9 Gastro-esophageal reflux disease without esophagitis; Z20.822 Contact with and (suspected) exposure to COVID-19; I08.3 Combined rheumatic disorders of mitral, aortic and tricuspid valves; R00.0 Tachycardia, unspecified; K44.9 Diaphragmatic hernia without obstruction or gangrene; Q61.02 Congenital multiple renal cysts; Z79.82 Long term (current) use of aspirin; Z79.1 Long term (current) use of non-steroidal anti-inflammatories (NSAID); Z79.899 Other long term (current) drug therapy
CPT/HCPCS: 36415; 71045; 71275; 80053; 81001; 82607; 82652; 83605; 83735; 83880; 84484; 85025; 85380; 85610; 85730; 86140; 87040; 87070; 87077; 87086; 87106; 87186; 87205; 87449; 87899; 93005; 93306; 94640; 96361; 96365; 96366; 96367; 96372; 96375; 96376; 99285; A9270; C9803; G0378; J0456; J0696; J1650; J2405; J2930; J7030; Q9967; U0003; U0005

== ENCOUNTER 2024-05-27 21:49 | Emergency (ER) | payer MEDICARE, SELFPAY ==
[2024-05-27 21:50] VITALS: BP 127/65; PULSE 99; RESP 20; TEMP 36.7; O2SAT 99
--- NOTE | 2024-05-27 23:11 | ED.GENADULT ---
HPI - General Adult General Chief complaint: Unspecified Stated complaint: constipation Time Seen by Provider: 05/27/24 22:42 History of Present Illness HPI narrative: this is an 83-year-old male presenting with chief complaint of constipation. He has been taking stool softeners and himself suppository enema. He then had a bowel movement in our emergency department. He had been having abdominal pain but all symptoms have resolved. He is requesting discharge. Related Data Home Medications Medication Instructions Recorded Confirmed acetaminophen 325 mg capsule 325 mg PO Q6H PRN Pain 08/02/19 04/10/24 aspirin 81 mg tablet,delayed 81 mg PO HS 08/02/19 04/10/24 release (Adult Aspirin Regimen) cholecalciferol (vitamin D3) 50 2,000 unit PO HS 02/19/20 04/10/24 mcg (2,000 unit) tablet cyanocobalamin (vitamin B-12) 1,000 mcg PO HS 02/11/22 04/10/24 1,000 mcg tablet Allergies Allergy/AdvReac Type Severity Reaction Status Date / Time No Known Allergies Allergy Unverified 05/27/24 21:55 [facility] Past Medical History Medical History (Updated 05/27/24 @ 23:14 by Scooby Beard MD) Abnormal fasting glucose (08/09/22) glucose 109 on 08/09/2022. fasting glucose 93 with hemoglobin A1c 5.7 on 03/01/2023. glucose 102 with hemoglobin A1c 6.0 on 04/06/2024. Anemia (04/06/24) hemoglobin 11.1 on 04/06/2024. At low risk for fall BMI 20.0-20.9, adult BMI 21.0-21.9, adult BMI 22.0-22.9, adult BMI 24.0-24.9, adult BMI 25.0-25.9,adult COPD exacerbation Elevated troponin Exposure to COVID-19 virus (~09/06/22) with COVID. Patient with symptoms Gastroesophageal reflux disease Peripheral arterial disease (~12/08/20) SAEED 0.55 left foot on home a visit by insurance 12/08/2020 Recent unexplained weight loss 14 lb weight loss 04/10/2024. Vitamin B12 deficiency anemia Vitamin B12 low at 155 on 08/10/2021. Level greater than 2000 on 03/01/2023. Normal at greater than 2000 with hemoglobin 11.1 on 04/06/2024. Vitamin D deficiency, unspecified Normal at 52.1 on 03/01/2023. Normal at 41.9 on 04/06/2024. Surgical History Surgical History (Updated 03/08/23 @ 11:45 by Desmond Collins MD) Hx of CABG Social History Social History Smoking packs per day: 1 Smoking cigarettes per day: 20.0 Years smoked: 1 Smoking pack-years: 1.00 Smoking status: Current some day smoker ( Quit 04/07/2022 with nicotine patch) Tobacco type: cigarettes Alcohol intake: current Drinks per week: 0 Substance use: never Substance use type: does not use Lack of Transportation: No Lack of Food: Never True Current Housing: I Have Housing Concerned About Future Housing: No Difficulty Paying Gas/Electric Bills: No Difficulty Paying for Meds: No Currently Unemployed: No Education: Trade/Vocational Certificate Difficulty w/ Childcare or Family Care: No Spiritual care concerns: No Exam Narrative: APPEARANCE: No apparent distress. Head: atraumatic. EYES: EOMI, NOSE: Atraumatic NECK: Trachea midline RESPIRATORY: No increased rate of breathing CARDIOVASCULAR: RRR, ABDOMINAL: Soft nontender no guarding rebound MUSCULOSKELETAl: No obvious deformities NEURO: Alert. Moving 4/4 extremities SKIN:: Warm, dry. Normal color PSYCHIATRIC: Normal affect Course Vital Signs Vital signs: Vital Signs Temperature 98.1 F 05/27/24 21:50 Pulse Rate 99 05/27/24 21:50 Respiratory Rate 05/27/24 21:50 Blood Pressure 127/65 05/27/24 21:50 Pulse Oximetry 99 05/27/24 21:50 Oxygen Delivery Room Air 05/27/24 21:50 Temperature 98.1 F 05/27/24 21:50 Pulse Rate 99 05/27/24 21:50 Respiratory Rate 05/27/24 21:50 Blood Pressure 127/65 05/27/24 21:50 Pulse Oximetry 99 05/27/24 21:50 Oxygen Delivery Room Air 05/27/24 21:50 Medical Decision Making MDM Narrative Medical decision making narrative: -Course
[2024-05-27 23:40] VITALS: PULSE 105; RESP 24; O2SAT 94
== END 2024-05-27 23:40 | disposition home or self-care (01) ==
PROVIDERS: Emergency Provider Emergency Medicine; PCP Family Medicine
DX: K59.00 Constipation, unspecified (principal); K21.9 Gastro-esophageal reflux disease without esophagitis; E55.9 Vitamin D deficiency, unspecified; E53.8 Deficiency of other specified B group vitamins; Z95.1 Presence of aortocoronary bypass graft; F17.210 Nicotine dependence, cigarettes, uncomplicated
CPT/HCPCS: 99283

== ENCOUNTER 2025-07-08 16:02 | Inpatient (IN) | payer MEDICARE, SELFPAY ==
[2025-07-08] VITALS (29 sets, daily range): BP systolic 103–129; BP diastolic 35–62; PULSE 69–95; RESP 18–30; TEMP 36.4; O2SAT 69–100; BMI 19.4; BMI 20.6
--- NOTE | ~2025-07-08 | US_ITS ---
EXAMINATION: US renal BI DATE: 07/09/2025 13:47 INDICATION: Acute renal failure. TECHNIQUE: Multiple ultrasound grayscale images of the kidneys were obtained. COMPARISON: CT abdomen and pelvis 05/07/2017 FINDINGS: The right kidney measures 8.1 x 4.2 x 5.8 cm. The left kidney measures 9.8 x 5.4 x 5.1 cm. The kidneys demonstrate normal parenchymal echogenicity. There are cysts in the kidneys measuring up to 3.3 cm on the right There is no hydronephrosis. The bladder is moderate well distended. There is chronic diffuse bladder wall thickening. There is echogenic urine in the bladder. The prostate is enlarged. IMPRESSION: 1. Mild atrophy of right kidney. No hydronephrosis. 2. Chronic diffuse bladder wall thickening, likely secondary to chronic outlet obstruction from the enlarged prostate. Reviewed, dictated and finalized at location E.
--- NOTE | ~2025-07-08 | US_ITS ---
EXAMINATION: US venous doppler [facility] DATE: 07/09/2025 13:47 INDICATION: Left lower limb edema. TECHNIQUE: Grayscale ultrasound images without and with compression and Doppler ultrasound images of the left lower extremity veins were obtained. COMPARISON: None. FINDINGS: The visualized portions of left common femoral vein, profunda (deep) femoral vein, femoral vein, popliteal vein, and greater saphenous vein outflow are patent. The calf veins are not well visualized. IMPRESSION: 1. No deep venous thrombosis. Reviewed, dictated and finalized at location E.
--- NOTE | ~2025-07-08 | XR_ITS ---
XR chest 1V portable INDICATION:SOA . REFERENCE: None FINDINGS: A single AP of the chest demonstrates normal heart size. Bilateral lower lobe infiltrate and opacities are noted. There are small bilateral pleural effusions. . IMPRESSION: No acute pulmonary findings. Reviewed, dictated and finalized at location S.
--- OUTSIDE RECORDS SUMMARY | 2025-07-08 16:16 | XMS_ITS | Clinical Summary ---
Author Organization 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 Name Role Phone Unavailable Primary Care Provider Unavailabl e Social History Tobacco Use Types Packs/Day Years Used Date Smoking Tobacco: Never Assessed Sex and Gender Information Value Date Recorded Sex Assigned at Not on file Legal Sex Male 7:25 PM CDT Gender Identity Not on file Sexual Orientation Not on file Plan of Treatment Health Maintenance Due Date Last Done Comments DTaP, Tdap and Td Vaccines ( 1 - Tdap) 1959 Pneumococcal Vaccine: 50+ Ye ars (1 of 1 - PCV) 1989 Zoster Vaccines (1 of 2) 1989 RSV Immunization or 60+ Years (1 - 1-dose 75+ series) 2014 COVID-19 Vaccine ( - 2023-2 5 season) 2025 Influenza Adult (#1) 2025 Meningococcal B Vaccine Aged Out No l onger eligible based on patient's age to complete this topic Meningococcal Vaccine Aged Out No tim hubert eligible based on patient's age to complete this topic RSV Immunizations Under 20 Months Aged Out No longer eligible based on patient's age to complete this topic
--- OUTSIDE RECORDS SUMMARY | 2025-07-08 16:16 | XMS_ITS | Clinical Summary ---
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 This disclosure is being madepursuant to the Care Everywhere program and may not contain all information available regarding this patient. 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 Gender Identity Not on file Sexual Orientation Not on file Plan of Treatment Health Maintenance Due Date Last Done Comments DTAP/TDAP/TD VACCINES (1 - Tdap) 1959 PNEUMOCOCCAL VACCINE 50+ (1 of 1 - PCV) 1989 ZOSTER VACCINE (1 of 2) 1989 Respiratory Syncytial Virus (RSV) Vaccine Pt: or over 60 yrs (1 - 1-dose 75+ series) 2014 DEPRESSION SCREENING 09/26/2024 COVID-19 VACCINE ( - 2023-2 5 season) 2025 INFLUENZA VACCINE (#1) 2025 HEPATITIS B VACCINE Aged Out No longe r eligible based on patient's age to complete this topic HIB VACCINE Aged Out No longer eligi ble based on patient's age to complete this topic HPV VACCINE Aged Out No longer eligi ble based on patient's age to complete this topic MENINGOCOCCAL (Group B) VACC INE SHARED DECISION-MAKING Aged Out No longer eligibl e based on patient's age to complete this topic MENINGOCOCCAL GROUPS A/C/Y/W VACCINE Aged Out No longer eligible b ased on patient's age to complete this topic
--- OUTSIDE RECORDS SUMMARY | 2025-07-08 16:17 | XMS_ITS | Clinical Summary ---
Author Organization [facility] [address] Address [address] [place] [address] Care Team Providers Care Straight Line Press Setter Name Role Phone Desmond Collins MD Primary Care Provider [phone] Allergies Active Allergy Reactions Criticality Noted Date Comments Ibuprofen Hives,Itching Medium 03/10/2021 Medications cholecalciferol (VITAMIN D-3) 2,000 unit capsule Take 2 capsules (4,000 Units total) by mouth nightly Active acetaminophen (TYLENOL) 325 mg tablet Take 2 tablets (650 mg total) by mouth every 6 (six) hours as needed for pain Active cyanocobalamin (Vitamin B-12) 1,000 mcg tabletIndicatio ns:Prevention of Vitamin B12 Deficiency Take 1 tablet (1,000 mcg total) by mouth nightly Active tamsulosin (FLOMAX) 0.4 mg extended release capsule Take 1 capsule (0.4 mg total) by mouth daily with dinner 30 capsule 04/23/2024 Active polyethylene glycol (MIRALAX) 17 gram/dose bulk powderIndicatio ns:constipation Take 17 g by mouth daily as needed (constipation ) 04/23/2024 Active magnesium hydroxide (MILK OF MAGNESIA) suspension 400 mg/5 mL Take 30 mL by mouth daily as needed Active melatonin 5 mg tablet Take 1 tablet (5 mg total) by mouth nightly Active aspirin 81 mg enteric coated tablet Take 1 tablet (81 mg total) by mouth daily Active amLODIPine-basilia zepriL (LOTREL) 10-40 mg per capsule 03/12/2025 Active pitavastatin calcium (LIVALO) 4 mg tablet Active traMADoL (ULTRAM) 50 mg tablet TAKE 2 TABLETS BY MOUTH 4 TIMES DAILY NEEDED FOR PAIN TAKE WITH TYLENOL 325MG UP TO 4 TIMES DAILYY NEEDED 03/19/2025 Active Active Problems Problem Noted Date Diagnosed Date Acute cystitis with hematuria 05/09/2024 Slow transit constipation 04/30/2024 Assessment & Plan (04/30/2024 12:47 PM CDT): We will add Harriett Colace b.I.D, MiraLax daily, milk of magnesia p.r.n.. Leukocytosis 04/30/2024 Assessment & Plan (04/30/2024 1:07 PM CDT): Current WBC 14.3, patient without infectious symptoms although catheter is in place. We will check UA Arthralgia 04/26/2024 Essential hypertension 04/26/2024 Assessment & Plan (04/26/2024 4:40 PM CDT): This is currently stable. We will monitor vital signs. We will expect a trending goal of 150/90 or below Mixed hyperlipidemia 04/26/2024 Assessment & Plan (04/26/2024 4:41 PM CDT): Continue atorvastatin 20 mg HS Nicotine use disorder 04/26/2024 Assessment & Plan (04/26/2024 4:42 PM CDT): Continue nicotine patch 21 mg daily Urinary retention 04/23/2024 Assessment & Plan (05/08/2024 8:49 AM CDT): Bell draining well. No suprapubic pain. Has urology f/u in am. Continue flomax 0.4mg daily Assessment & Plan (04/30/2024 1:00 PM CDT): Per son and patient the replacement of bell was difficult even for Urology - Will need to keep urology f/u that is scheduled next week to assess for voiding trial. Continue flomax, treat constipation. Assessment & Plan (04/26/2024 4:37 PM CDT): This is subacute and he currently has an indwelling Bell catheter. He failed a voiding trial during the hospitalization. We will continue the indwelling Bell for now with the intent to remove this for a voiding trial after he has adjusted to his new setting. We will continue tamsulosin. If were unsuccessful with our voiding trial he will require a urology consultation. Acute anemia 04/21/2024 Assessment & Plan (05/08/2024 8:48 AM CDT): Hgb overall stable, currently 8.1. Pt ambulating well, aspirin will remain on hold for now. Continue iron supplementation Assessment & Plan (05/02/2024 1:50 PM CDT): Hemoglobin has decreased from 8.1-7.2, no active bleeding noted, no drainage from left hip. We will place DVT prophylaxis (aspirin 81 mg b.i.d.) on hold. Follow- up labs 05/04/2024. Continue iron supplementation. Assessment & Plan (04/26/2024 4:42 PM CDT): Follow up labs were ordered. Continue ferrous sulfate 325 mg p.o. daily. Stage 3a chronic kidney disease 04/20/2024 Assessment & Plan (05/02/2024 1:48 PM CDT): Renal function has been labile, current BUN/creatinine 52/1.40 with a GFR of 50. Discussed with patient, he does not want IV fluids, I have encouraged him to increase his p.o. fluid intake. If labs continue to worsen we will need IV fluids later this week. Assessment & Plan (04/30/2024 1:10 PM CDT): BUN/creatinine 41/1.32 with a GFR of 53, now also with mild hyperkalemia 5.4. Push p.o. fluids. We will recheck labs on 05/02. Patient is not on Tonny/Arb Assessment & Plan (04/26/2024 4:38 PM CDT): Follow up lab ordered Neutrophilia 04/19/2024 Thrombocytopenia 04/19/2024 Severe protein-calorie malnutrition 04/18/2024 Assessment & Plan (04/26/2024 4:36 PM CDT): His son reports decreased oral intake of calories and nutrition. Dietary consult to monitor. Hyperkalemia 04/18/2024 Assessment & Plan (05/02/2024 1:49 PM CDT): Current potassium 5.5, if increases with next lab draw will likely require lokelma. Patient is not currently on TONNY/ARB or supplemental potassium. Assessment & Plan (04/26/2024 4:38 PM CDT): Follow up lab STEFAN (acute kidney injury) 04/18/2024 Closed intertrochanteric fra cture of hip, left, initial encounter 04/17/2024 Closed intertrochanteric fra cture of left hip, with routine healing, subsequent encounter 04/17/2024 Assessment & Plan (05/08/2024 8:52 AM CDT): Incision healing, pain controled with prn tylenol and prn oxycodone. Therapies are in place, pt participating and making progress. Has scheduled ortho visit next week Assessment & Plan (05/02/2024 1:52 PM CDT): Incisions well approximated, dressing and remigio removed, Steri-Strips applied. Has scheduled follow-up with Orthopedic surgery. Aspirin will be placed on hold due to anemia, pain is well controlled with p.r.n. oxycodone.. Assessment & Plan (04/30/2024 1:06 PM CDT): Pain controlled, continue scheduled oxycodone, P.r.n. Tylenol. We will change oxycodone to 10 mg q.6 hours p.r.n. as this is likely contributing to constipation. We will remain on aspirin 81 mg b.I.d. for a total of 14 days for DVT prophylaxis. We will need orthopedic surgery follow-up. Assessment & Plan (04/26/2024 4:39 PM CDT): This is subacute and currently stable. We will continue aspirin 81 mg b.i.d. for 14 days as DVT prophylaxis and as indicated by his surgeon. We will continue oxycodone 10 mg every 6 hours p.r.n. pain (his initial dosing of 5 mg oxycodone was insufficient by his report close parentheses. That is where increasing his oxycodone dosing we will suspend the tramadol script. He is to follow up with Orthopedics in 2 weeks Coronary artery disease invo lving samish coronary artery of samish heart without angina pectoris 05/25/2017 Assessment & Plan (04/26/2024 4:36 PM CDT): This is currently stable. Continue aspirin 81 mg, atorvastatin 20 mg. S/P CABG (coronary artery bypass graft) 05/25/20 17 Surgical History Surgery Date Site/Laterality Comments ARTERIAL BYPASS SURGERY APPENDECTOMY Medical History Medical History Date Comments Hypertension Hyperlipidemia Arthritis Family History Relation Name Status Comments Father Mother Social History Tobacco Use Types Packs/Day Years Used Date Smoking Tobacco: Every Day Cigarettes Smokeless Tobacco: Never Tobacco Cessation:Ready to Q uit: Not Asked; Counseling Given: Not Answered Alcohol Use Standard Drinks/Week Comments No 0 (1 standard drink = 0.6 oz pur e alcohol) [facility] Utilities Answer Date Recorded In the past 12 months has [employer], gas, oil, or water [employer] threatened to shut off services in your home? No 05/11/2024 Social Connection and Isolation Panel Answer Date Recorded In a typical week, how many times do you talk on the phone with family, friends, or neighbors? More than three times a week 05/11/2024 How often do you get togethe r with friends or relatives? More than three times a week 05/11/2024 How often do you attend chur or adventism services? More than 4 times per year 05/11/2024 Do you belong to any clubs o r organizations such as mandaeism groups, unions, fraternal or athletic groups, or school groups? No 05/11/2024 How often do you attend meet ings of the clubs or organizations you belong to? Never 05/11/2024 Are you , , di vorced, , never , or living with a partner? 05/11/2024 Overall Financial Resource Strain (CARDIA) Answe r Date Recorded How hard is it for you to pa y for the very basics like food, housing, medical care, and heating? Not hard at all 05/11/2024 Hunger Vital Sign Answer Date Recorded Within the past 12 months, y ou worried that your food would run out before you got the money to buy more. Never true 05/11/20 24 Within the past 12 months, t he food you bought just didn't last and you didn't have money to get more. Never true 05/11/2024 PRAPARE - Transportation Answer Date Re corded In the past 12 months, has l ack of transportation kept you from medical appointments or from getting medications? No 04/26 In the past 12 months, has l ack of transportation kept you from meetings, work, or from getting things needed for daily living? No 05/11/2024 Housing Stability Vital Sign Answer Ernie e Recorded In the last 12 months, was t here a time when you were not able to pay the mortgage or rent on time? No 05/11/2024 In the past 12 months, how m any times have you moved where you were living? 0 05/11/2024 At any time in the past 12 m [facility], were you homeless or living in a alf (including now)? No 05/11/2024 Personal Safety Answer Date Recorded Have you ever been in or are you currently in a harmful physical or emotional relationship or is someone making you feel afraid or unsafe? 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 Gender Identity Not on file Sexual Orientation Not on file Obstetrics History Last Filed Vital Signs Vital Sign Reading Time Taken Comments Blood Pressure 110/70 03/26/2025 7:44 AM CDT Pulse 77 03/26/2025 7:44 AM CDT Temperature 36.8 C (98.2 F) 05/15/2024 8:17 AM CDT Respiratory Rate 18 05/15/2024 8:17 AM CDT Oxygen Saturation 97% 03/26/2025 7:44 AM CDT Inhaled Oxygen Concentration - - Weight 53.8 kg (118 lb 8 oz) 03/26/2025 7:44 AM CDT Height 167.6 cm (5' 6) 03/26/2025 7:44 AM CDT Body Mass Index 19.13 03/26/2025 7:44 AM CDT Plan of Treatment Health Maintenance Due Date Last Done Comments Depression Screening 1940 DTaP/Tdap/Td Vaccine (1 - Tdap) 1950 Hepatitis B Screening 1957 Well Visit 65+ 2004 Zoster Vaccine (1 of 2) 12/05/2013 10/10/2013 Fall Risk Assessment 05/15/2025 05/15/2024 Influenza Vaccine (#1) 2025 8, 09/08/2016, 10/10/2013 Pneumococcal vaccine 65+ Completed 05/30/2018, 08/26 Medical Devices Implanted Type Area Power Station Operator Device Identifier Shelf Expiration Date Model / Serial / Lot Synthes Tfn-Advanced Lateral Relief Cut 10mm 170mm Cannulated Femoral 04.037.012s - [id number] Implanted:Qty: 1 on 04/19/2024 by Kamini Buckner DO at [facility] Left: Hip Synthes I [id number] 12/24/2033 04.037.012 S / / [id number] Synthes Tfn-Advanced 10.35mm 90mm Cannulated 3.5mm Screw Bone [id number] 04.038.190s - [id number] Implanted:Qty: 1 on 04/19/2024 by Kamini Buckner DO at [facility] Left: Hip Synthes [id number] 03/25/2033 04.038.190 S / / [id number] Synthes 5mm 4.3mm 36mm Lock Self Tap Blunt Tip 2 Lead Tibial T25 Full 04.005.526s - [id number] Implanted:Qty: 1 on 04/19/2024 by Kamini Buckner DO at [facility] Left: Hip Synthes I [id number] 10/26/2032 04.005.526 S / / [id number] Insurance MEDICARE ADVANTAGE MEDICARE ADVANTAGE Member Subscriber Plan / Payer (Ef fective 2023-Present) Name:Blas De Oliveira Relation to Subscriber:Self Name:Blas De Oliveira Payer ID:[id number] (NAIC) Type:[facility] MEDICARE Address: [place] [id number] MEDICARE ADVANTAGE Advance Directives For more information, please contact: [phone] Documents on File Type Date Recorded Patient A Auxiliary Expl anation ADVANCE DIRECTIVE 05/16/2024 1:54 PM POLST - Phys Order for PT Preferences * LIMITED - No CPR (Latest Code Status on File) Date Activated Date Inactivated Comments 05/11/2024 12:01 PM 05/15/2024 9:01 PM Question Answer Comments Provide aggressive medical m anagement before a full cardiopulmonary arrest occurs. Use antibiotics, IV Fluids, and medical treatment unless specifically selected below: No intubation * Full Code Date Activated Date Inactivated Comments 05/09/2024 11:56 AM 05/11/2024 12:01 PM * Full Code Date Activated Date Inactivated Comments 04/17/2024 10:53 AM 04/25/2024 6:01 PM Care Teams Straight Line Press Setter Relationship Specialty Start Date End Date Desmond Collins MD [address] [address] PCP - General 10/18/11
--- NOTE | 2025-07-08 16:31 | ECG_ITS ---
Test Date: 2025-07-08 16:42:01 Measurements Intervals [place] Rate: 69 P: 10 WI: 178 QRS: 67 QRSD: 145 T: 188 QT: 381 QTc: 409 Interpretive Statements SINUS RHYTHM LEFT BUNDLE BRANCH BLOCK BASELINE ARTIFACT- V4-V5 ABNORMAL ECG No previous ECG available for comparison Electronically Signed On 07-08-2025 18:59:28 CDT by Gavin Bagley D.O.
[2025-07-08 17:51] LABS: Hematocrit 31.5 % (42.0-52.0); Hemoglobin 9.1 g/dL (14.0-18.0); Mean Corpuscular HGB Conc 28.9 g/dl (32-36); Mean Corpuscular Hemoglobin 28.2 pg (26-34); Mean Corpuscular Volume 97.5 fl (80-100); Platelet Count Result 170 k/mm3 (150-375); Red Blood Count 3.23 M/mm3 (4.6-6.20); White Blood Count 12.6 K/mm3 (4.5-10.0)
[2025-07-08] MEDS: IPRATROPIUM BR 0.02% INH SOLN 0.5 MG/2.5 ML VIAL 1 MG INHALATION (18:00)
[2025-07-08] MEDS: ALBUTEROL SULFATE NEB 2.5 MG/3 ML INH 10 MG INHALATION (18:00)
[2025-07-08 18:16] LABS: Lymphocytes Absolute Manual 1.38 K/mm3 (1.1-4.5); Lymphocytes Percent Manual 11.0 % (18-44); Monocytes Absolute Manual 0.25 K/mm3 (0.1-0.90); Monocytes Percent Manual 2 % (3-9); Neutrophils Percent Manual 87 % (46-73); Total Cells Counted 100
[2025-07-08 18:17] LABS: Schistocytes None Seen
[2025-07-08 18:18] LABS: Anisocytosis 2+; Hypochromasia 1+
[2025-07-08 18:19] LABS: Band Neutrophils Percent 0 % (0-6); Neutrophils Absolute Manual 10.96 K/mm3 (1.3-6.7)
--- NOTE | 2025-07-08 18:28 | ECG_ITS ---
Test Date: 2025-07-08 18:56:55 Measurements Intervals [place] Rate: 74 P: 3 GA: 173 QRS: 76 QRSD: 142 T: 194 QT: 364 QTc: 405 Interpretive Statements SINUS RHYTHM POSSIBLE LEFT ATRIAL ENLARGEMENT LEFT BUNDLE BRANCH BLOCK ABNORMAL ECG Compared to ECG 07/08/2025 16:42:01 NO SIGNIFICANT CHANGE Electronically Signed On 07-08-2025 19:02:14 CDT by Gavin Bagley D.O.
[2025-07-08 19:11] LABS: Alanine Aminotransferase 49 U/L (6-50); Albumin Level 3.8 g/dL (3.5-5.1); Alkaline Phosphatase 118 U/L (38-126); Anion Gap 13 mmol/L (4-12); Aspartate Amino Transferase 90 U/L (17-59); Bilirubin,Total 0.3 mg/dL (0.2-1.3); Blood Urea Nitrogen 91 mg/dL (9-20); Calcium 9.2 mg/dL (8.4-10.2); Carbon Dioxide 19 mmol/L (22-30); Chloride 108 mmol/L (98-107); Estimated CRCL calculation 8 ml/min; Estimated Glomerular Filt Rate 12; Glucose 118 mg/dL (65-110); Potassium 8.0 mmol/L (3.4-5.0); Sodium 140 mmol/L (137-145); Total Protein 6.7 g/dL (6.3-8.2)
[2025-07-08] MEDS: DEXTROSE 50% 25 GM/50 ML SYRINGE IV PUSH (19:21)
[2025-07-08] MEDS: INSULIN HUMAN REGULAR (*BKC) 100 UNITS/ML 10 UNITS IV PUSH (19:25)
[2025-07-08] MEDS: SODIUM BICARBONATE 8.4% 50 MEQ/50 ML SYRINGE IV PUSH (19:28)
[2025-07-08 19:29] LABS: NT Pro B Type Natriuretic Pept > 30000 pg/mL (19.9-100)
[2025-07-08] MEDS: SODIUM CHLORIDE 0.9% IV 1,000 ML 999 ML IV CONT (19:29)
[2025-07-08] MEDS: CALCIUM GLUC 1,000 MG/NS 50 ML 1,000 MG/50 ML BAG 100 MG IVPB (19:30)
--- NOTE | 2025-07-08 19:37 | ED.SOB ---
HPI - SOB/Dyspnea General Chief Complaint: Shortness of Breath/Dyspnea Stated Complaint: SOB Time Seen by Provider: 07/08/25 17:15 History of Present Illness HPI Narrative: Patient is an 84-year-old male who presents ER with shortness of breath. Worsening over last no electrolyte abnormality couple weeks. Mild cough. No chest pain or chest pressure. Cannot describe any alleviating factors. Patient hypoxic in the 60s on arrival. Placed on a O2 and to be titrated up to a non-rebreather. Has history of COPD. Related Data Home Medications ?Medication ?Instructions ?Recorded ?Confirmed ?Last Taken ?Type acetaminophen 325 mg capsule 325 mg PO Q6H PRN Pain 08/02/19 05/30/24 Unknown History aspirin 81 mg tablet,delayed 81 mg PO HS 08/02/19 05/30/24 Unknown History release (Adult Aspirin Regimen) cholecalciferol (vitamin D3) 50 2,000 unit PO HS 02/19/20 05/30/24 Unknown History mcg (2,000 unit) tablet cyanocobalamin (vitamin B-12) 1,000 mcg PO HS 02/11/22 05/30/24 Unknown History 1,000 mcg tablet Allergies Allergy/AdvReac Type Severity Reaction Status Date / Time propranolol AdvReac hives Verified 12/13/24 13:49 Review of Systems Review of Systems: All systems reviewed & are unremarkable except as noted in HPI and below Constitutional: Constitutional: Reports no additional constitutional complaints ENT: Reports system reviewed and no additional complaints, except as documented Cardiovascular: Cardiovascular: Reports no additional cardiovascular complaints Respiratory: Respiratory: Reports no additional respiratory complaints Gastrointestinal: Gastrointestinal: Reports no additional gastrointestinal complaints [facility] Past Medical History Medical History Urinary retention Stenosis of left subclavian artery Multiple lung nodules on CT Aneurysm, ascending aorta Weight loss, unintentional BMI 20.0-20.9, adult Recent unexplained weight loss 14 lb weight loss 04/10/2024. Anemia (04/06/24) hemoglobin 11.1 on 04/06/2024. BMI 21.0-21.9, adult At low risk for fall Exposure to COVID-19 virus (~09/06/22) with COVID. Patient with symptoms Abnormal fasting glucose (08/09/22) glucose 109 on 08/09/2022. fasting glucose 93 with hemoglobin A1c 5.7 on 03/01/2023. glucose 102 with hemoglobin A1c 6.0 on 04/06/2024. BMI 22.0-22.9, adult Elevated troponin COPD exacerbation BMI 24.0-24.9, adult BMI 25.0-25.9,adult Peripheral arterial disease (~12/08/20) SAEED 0.55 left foot on home a visit by insurance 12/08/2020 Vitamin B12 deficiency anemia Vitamin B12 low at 155 on 08/10/2021. Level greater than 2000 on 03/01/2023. Normal at greater than 2000 with hemoglobin 11.1 on 04/06/2024. Vitamin D deficiency, unspecified Normal at 52.1 on 03/01/2023. Normal at 41.9 on 04/06/2024. Gastroesophageal reflux disease Surgical History Surgical History Hx of CABG Social History Social History Smoking packs per day: 1 Smoking cigarettes per day: 20.0 Years smoked: 1 Smoking pack-years: 1.00 Smoking status: Current every day smoker Tobacco type: cigarettes Alcohol intake: current Drinks per week: 0 Substance use: never Substance use type: does not use Lack of Transportation: No Lack of Food: Never True Current Housing: I Have Housing Concerned About Future Housing: No Difficulty Paying Gas/Electric Bills: No Difficulty Paying for Meds: No Currently Unemployed: No Education: Trade/Vocational Certificate Difficulty w/ Childcare or Family Care: No Spiritual care concerns: No Exam Narrative: GENERAL: Ill-appearing, well-nourished, and in no acute distress. HEAD: Normocephalic, atraumatic. ENT: Mucous membranes moist. NECK: Supple. CHEST: Diminished bilaterally but clear. Moderate respiratory distress. HEART: Regular rate and rhythm. Normal peripheral pulses. ABDOMEN: Soft, nontender, nondistended. EXTREMITIES: Normal range of motion. 2+ edema. SKIN: Warm, dry, no rash. NEURO: Alert and oriented x3. PSYCH: Normal mood and affect. Course Course Emergency Course: 193: Patient is incredibly ill. I have discussed the case with both the patient as well as his son. The patient does not want to be intubated and does not want even temporary dialysis. It appears he is in new renal failure with significant hyperkalemia. He is receiving medical treatment. Nephrology has been consulted and there is not much else we can do other the medical therapy since he does not wish to have dialysis. His BNP has come back and is significantly elevated so fluids have been stopped and we will try some Lasix to help decrease his potassium. He is more comfortable on BiPAP as he started become more worn out after his nebulizer treatment. Vital Signs Vital signs: Vital Signs Temperature 97.6 F 07/08/25 16:32 Pulse Rate 70 07/08/25 16:32 Respiratory Rate 24 H 07/08/25 16:32 Blood Pressure 108/62 07/08/25 16:32 Pulse Oximetry 82 L 07/08/25 16:32 Oxygen Delivery Room Air 07/08/25 16:32 Temperature 97.6 F 07/08/25 16:32 Pulse Rate 86 07/08/25 19:47 Respiratory Rate 18 07/08/25 19:47 Blood Pressure 113/55 L 07/08/25 19:47 Pulse Oximetry 100 07/08/25 19:47 Oxygen Delivery BiPAP 07/08/25 19:37 Oxygen Flow Rate 15 07/08/25 17:00 MDM - SOB/Dyspnea Lab Data 07/08/25 17:43 07/08/25 18:38 Labs: Lab Results 07/08/25 07/08/25 07/08/25 Range/Units 17:43 18:38 19:51 WBC 12.6 H (4.5-10.0) K/mm3 RBC 3.23 L (4.6-6.20) M/mm3 Hgb 9.1 L (14.0-18.0) g/dL Hct 31.5 L (42.0-52.0) % MCV 97.5 (80-100) fl MCH 28.2 (26-34) pg MCHC 28.9 L (32-36) g/dl RDW 15.3 H (11.5-14.5) % Plt Count 170 (150-375) k/mm3 MPV 11.5 H (7.4-10.4) fl Immature Gran % (Auto) Not Reportable Neut % (Auto) Not Reportable Lymph % (Auto) Not Reportable [place] % (Auto) Not Reportable Eos % (Auto) Not Reportable Baso % (Auto) Not Reportable Lymph # (Auto) Not Reportable [place] # (Auto) Not Reportable Eos # (Auto) Not Reportable Baso # (Auto) Not Reportable Abs Immat Gran (auto) Not Reportable Absolute Neuts (auto) Not Reportable Absolute Nucleated RBC Not Reportable Total Counted 100 Neutrophils % (Manual) 87 H (46-73) % Band Neutrophils % 0 (0-6) % Lymphocytes % (Manual) 11.0 L (18-44) % Monocytes % (Manual) 2 L (3-9) % Nucleated RBC % Not Reportable Abs Neuts (Manual) 10.96 H (1.3-6.7) K/mm3 Abs Lymphs (Manual) 1.38 (1.1-4.5) K/mm3 Abs Monocytes (Manual) 0.25 (0.1-0.90) K/mm3 Platelet Estimate Adequate (Adequate) Hypochromasia 1+ Anisocytosis 2+ Schistocytes None seen Methemoglobin 0.4 (0-1.5) %THb Expiratory Pressure 8 cmH2O Inspiratory Pressure 16 cmH2O Sodium 140 (137-145) mmol/L Potassium 8.0 H* (3.4-5.0) mmol/L Chloride 108 H (98-107) mmol/L Carbon Dioxide 19 L (22-30) mmol/L Anion Gap 13 H (4-12) mmol/L BUN 91 H D (9-20) mg/dL Creatinine 4.80 H (0.7-1.3) mg/dL Estim Creat Clear Calc 8 ml/min Estimated GFR 12 L (59 - ) Glucose 118 H (65-110) mg/dL POC Capillary Glucose (65-105) mg/dl Lactic Acid 1.4 (0.7-2.0) mmol/L Calcium 9.2 (8.4-10.2) mg/dL Total Bilirubin 0.3 (0.2-1.3) mg/dL AST 90 H (17-59) U/L ALT 49 (6-50) U/L Alkaline Phosphatase 118 (38-126) U/L NT-Pro-B Natriuret Pep > 08448 H (19.9-100) pg/mL Total Protein 6.7 (6.3-8.2) g/dL Albumin 3.8 (3.5-5.1) g/dL 07/08/25 Range/Units 19:59 WBC (4.5-10.0) K/mm3 RBC (4.6-6.20) M/mm3 Hgb (14.0-18.0) g/dL Hct (42.0-52.0) % MCV (80-100) fl MCH (26-34) pg MCHC (32-36) g/dl RDW (11.5-14.5) % Plt Count (150-375) k/mm3 MPV (7.4-10.4) fl Immature Gran % (Auto) Neut % (Auto) Lymph % (Auto) [place] % (Auto) Eos % (Auto) Baso % (Auto) Lymph # (Auto) [place] # (Auto) Eos # (Auto) Baso # (Auto) Abs Immat Gran (auto) Absolute Neuts (auto) Absolute Nucleated RBC Total Counted Neutrophils % (Manual) (46-73) % Band Neutrophils % (0-6) % Lymphocytes % (Manual) (18-44) % Monocytes % (Manual) (3-9) % Nucleated RBC % Abs Neuts (Manual) (1.3-6.7) K/mm3 Abs Lymphs (Manual) (1.1-4.5) K/mm3 Abs Monocytes (Manual) (0.1-0.90) K/mm3 Platelet Estimate (Adequate) Hypochromasia Anisocytosis Schistocytes Methemoglobin (0-1.5) %THb Expiratory Pressure cmH2O Inspiratory Pressure cmH2O Sodium (137-145) mmol/L Potassium (3.4-5.0) mmol/L Chloride (98-107) mmol/L Carbon Dioxide (22-30) mmol/L Anion Gap (4-12) mmol/L BUN (9-20) mg/dL Creatinine (0.7-1.3) mg/dL Estim Creat Clear Calc ml/min Estimated GFR (59 - ) Glucose (65-110) mg/dL POC Capillary Glucose 170 H (65-105) mg/dl Lactic Acid (0.7-2.0) mmol/L Calcium (8.4-10.2) mg/dL Total Bilirubin (0.2-1.3) mg/dL AST (17-59) U/L ALT (6-50) U/L Alkaline Phosphatase (38-126) U/L NT-Pro-B Natriuret Pep (19.9-100) pg/mL Total Protein (6.3-8.2) g/dL Albumin (3.5-5.1) g/dL ABG Data ABG results: 07/08/25 19:51 Puncture Site Right brachial ABG pH 7.128 L* ABG pCO2 56.0 H ABG pO2 106.8 H ABG PO2/FiO2 Ratio 1.78 ABG HCO3 18.1 L ABG O2 Saturation 96.0 ABG O2 Content 12.8 L ABG Base Excess -10.8 A-a Gradient 259.4 Oxyhemoglobin 95.4 Carboxyhemoglobin 0.5 Reduced Hemoglobin 3.7 Total Hemoglobin 9.4 L O2 Delivery Device Bipap O2 Liters/Min Not Reportable FiO2 60 Imaging Data Radiologist's impression: ITS Impressions Chest X-Ray 07/08/25 17:54 IMPRESSION: No acute pulmonary findings. ECG Data EKG #1: ECG completion date: 07/08/25 ECG completion time: 16:42 EKG Interpretation: normal rate (69), sinus rhythm, widened QRS, LBBB and left axis Critical Care Time Critical Care Time Critical Care Time: Yes Total Critical Care Time: 40 Discharge Plan Discharge Clinical Impression: Acute kidney injury, Hyperkalemia, Respiratory failure Patient Disposition: Still a Patient Condition: Critical
--- NOTE | 2025-07-08 19:38 | PCRCNOTE ---
ABG to be done 30-40 min after patient has been on bipap
[2025-07-08] MEDS: FUROSEMIDE INJ 40 MG/4 ML VIAL IV PUSH ×2 (19:41→21:14)
[2025-07-08 20:12] LABS: Alveolar/Arterial O2 Gradient 259.4 mmHg; Carboxyhemoglobin 0.5 % THb (0-2.0); Fractional Inspired Oxygen 60 %; HCO3 ABG 18.1 mEq/l (22.0-26.0); Methemoglobin ABG 0.4 %THb (0-1.5); Oxygen Content ABG 12.8 %vol (16.0-22.0); Oxygen Saturation ABG 96.0 % (95.0-100.0); PCO2 ABG 56.0 mmHg (35.0-45.0); PO2 ABG 106.8 mmHg (80.0-100.0); PO2 FiO2 Ratio Arterial Blood 1.78 %; Reduced Hemoglobin 3.7 %THb (0-5.0)
[2025-07-08 20:17] LABS: Modified Allen's Test Pass; Site Drawn RIGHT BRACHIAL
--- NOTE | 2025-07-08 22:11 | PC.NURSE ---
This RN called and spoke to pt son Blas and granddaughter Kelly and gave update on pt per pt request. Pt son Bong at bedside.
--- NOTE | 2025-07-08 22:15 | ADMGEN ---
This patient, Blas De Oliveira, was admitted to IMU Room 206-02 via stretcher with one tech and one RT on continuos bipap and no issues. Patient/family oriented to hospital policies and general routines including ID bracelet, bed and alarms, visiting hours, pain management, procedures, bathroom and other care routines, personal items, smoking policy, room service/diet, and visiting hours. Information on how to activate the Rapid Response Team has been discussed. Patient/Family are encouraged to report perceived risks to care and to ask questions if they do not understand what they are told or what they should do.
--- NOTE | 2025-07-08 22:19 | PC.NURSE ---
kailee lopez phone number is [phone]. Pt granddaughter Kelly phone number is [phone].
[2025-07-08 23:39] LABS: Anion Gap 12 mmol/L (4-12); Blood Urea Nitrogen 93 mg/dL (9-20); Calcium 9.4 mg/dL (8.4-10.2); Carbon Dioxide 15 mmol/L (22-30); Chloride 111 mmol/L (98-107); Estimated CRCL calculation 8 ml/min; Estimated Glomerular Filt Rate 11; Glucose 96 mg/dL (65-110); Sodium 138 mmol/L (137-145)
[2025-07-09] VITALS (28 sets, daily range): BP systolic 95–133; BP diastolic 47–61; PULSE 89–117; RESP 19–44; TEMP 36–37.3; O2SAT 61–100
--- NOTE | 2025-07-09 | ECHO_ITS ---
Patient Info Name: Blas De Oliveira Age: 84 years : 1940 Gender: Male Ht: 68 in Wt: 127 lbs BSA: 1.65 m2 HR: 103 bpm BP: 133 / 61 mmHg Technical Quality: Good Exam Date: 07/09/2025 10:11 AM Patient Status: I Admit Date: 07/08/2025 Exam Type: CA echo dop color flow w con Complete two-dimensional, color flow and Doppler transthoracic echocardiogram is performed with contrast to opacify the left ventricle and to improve the deliniation of the left ventricle endocardial borders. Staff Referring Physician: Aysha White DO Software Performance Engineer: Vivian Steward Attending Provider: Aysha White DO Contrast/Agitated Saline Contrast/Ag. Saline: Definity Amount: 2.00 ml Summary 1. Left ventricular systolic function is normal, estimated at 30-35. Infero-septum is more hypokinetic. 2. The left ventricular diastolic function is grade II diastolic dysfunction. 3. There is moderate mitral valve regurgitation. 4. There is mild to moderate tricuspid valve regurgitation. 5. Severe pulmonary hypertension, estimated pulmonary arterial systolic pressure is 65 mmHg. 6. There is mild pulmonic regurgitation. Left Ventricle Left ventricular chamber dimension is normal. Left ventricular systolic function is normal, estimated at 30-35. Infero-septum is more hypokinetic. There is no increased left ventricular wall thickness. The left ventricular diastolic function is grade II diastolic dysfunction. Right Ventricle Right ventricular chamber dimension is normal. Right ventricular systolic function is normal. Left Atria Left atrial chamber dimension is normal. Right Atria Right atrial chamber dimension is normal. Aortic Valve The aortic valve is trileaflet. There is no aortic valve sclerosis. There is no aortic valve stenosis. There is no aortic valve regurgitation. Pulmonic Valve The pulmonic valve is normal. There is no pulmonic valve stenosis. There is mild pulmonic regurgitation. Mitral Valve The mitral valve has normal leaflets. There is no mitral valve stenosis. There is moderate mitral valve regurgitation. There is mild mitral valve calcification. Tricuspid Valve The tricuspid valve leaflets are normal. There is no significant tricuspid valve stenosis. There is mild to moderate tricuspid valve regurgitation. Severe pulmonary hypertension, estimated pulmonary arterial systolic pressure is 65 mmHg. Pericardium/Pleural The pericardium appears normal. There is no pericardial effusion. Inferior Vena Cava Normal inferior vena cava with >50% collapse upon inspiration consistent with normal right atrial pressure, 5 mmHg. Aorta The aortic root size at the sinus of Valsalva is normal. The prox ascending aorta size is normal. Left Ventricular Outflow Tract Name Value Normal LVOT 2D LVOT Diameter 2.0 cm LVOT Doppler LVOT Peak Velocity 108 cm/s LVOT Peak Gradient 5 mmHg LVOT Mean Gradient 2 mmHg LVOT VTI 22 cm LVOT Stroke Volume 66 ml LVOT CO 6.8 l/min LVOT CI 4.1 l/min/m2 Pulmonic Valve Name Value Normal RVOT Doppler RVOT Peak Velocity 63 cm/s RVOT Peak Gradient 2 mmHg PV Doppler PV Peak Velocity 124 cm/s PV Peak Gradient 6 mmHg Mitral Valve Name Value Normal MV Diastolic Function MV E Peak Velocity 132 cm/s MV A Peak Velocity 92 cm/s MV E/A 1.4 MV Decel Time (PW) 128 ms MV Annular TDI MV E/e' (Septal) 17.6 MV E/e' (Lateral) 12.6 MV E/e' (Average) 15.1 Tricuspid Valve Name Value Normal TV Regurgitation Doppler TR Peak Velocity 386 cm/s TR Peak Gradient 60 mmHg Estimated PAP/RSVP RA Pressure 5 mmHg <=5 PA Systolic Pressure 65 mmHg <36 RV Systolic Pressure 65 mmHg <36 Aortic Valve Name Value Normal AV Doppler AV Peak Velocity 188 cm/s AV Peak Gradient 14 mmHg AV Area (Cont Eq Glen) 1.8 cm2 AV DI (Glen) 0.58 AV Regurgitation 2D LVOT Area 3.1 cm2 Ventricles Name Value Normal LV Dimensions 2D/MM IVS Diastolic Thickness (2D) 1.0 cm 0.6-1.0 LVID Diastole (2D) 5.3 cm 4.2-5.8 LVIW Diastolic Thickness (2D) 1.1 cm 0.6-1.0 LVOT Diameter 2.0 cm LV Mass (2D Cubed) 212.06 g 88.00-224.00 LV Mass Index (2D Cubed) 128 g/m2 49-115 Relative Wall Thickness (2D) 0.40 <=0.42 LV Fractional Shortening/Ejection Fraction 2D/MM LV Diastolic Volume (4C MOD) 152 ml LV EF (4C MOD) 26 % LV Diastolic Volume (2C MOD) 161 ml LV EF (2C MOD) 35 % LV Diastolic Volume (BP MOD) 161 ml 62-150 LV Diastolic Volume Index (BP MOD) 97 ml/m2 34-74 LV Systolic Volume (BP MOD) 108 ml 21-61 LV Systolic Volume Index (BP MOD) 65 ml/m2 11-31 LV EF (BP MOD) 33 % 52-72 LV Diastolic Length (4C) 8.8 cm LV Systolic Length (4C) 8.7 cm LV Stroke Volume (4C MOD) 40 ml Atria Name Value Normal LA Dimensions LA Volume (4C A-L) 134 ml LA Volume (BP A-L) 109 ml RA Dimensions RA Systolic Major [place] Length (4C) 5.8 cm 2.1-2.7 RA Area (4C) 14.0 cm2 <=18.0 Report Signatures
[2025-07-09 00:04] LABS: Potassium 7.3 mmol/L (3.4-5.0)
--- NOTE | 2025-07-09 00:42 | PM.IMHP ---
H&P: HPI History of Present Illness Date/Time: 07/09/25 00:42 Chief Complaint: Shortness of breath Narrative: 84-year-old male with a past medical history of COPD, essential hypertension, osteoarthritis chronic NSAID, glaucoma and BPH who presented to the ER via private vehicle due to shortness of breath and increasing weakness. In triage the patient was noted to have oxygen saturations of 69-72% on room air. He reported improvement in his shortness of breath with 6 L nasal cannula with oxygen saturations coming up to 84%. He was then placed on a non-rebreather until BiPAP was arranged. The patient reports that he has had increased work of breathing for the last week. He denies any orthopnea or paroxysmal nocturnal dyspnea. He denies having any cough or congestion. He does have lower extremity edema of the left lower extremity but he does not think it is any worse than his baseline. He states that is been swollen since his hip replacement in the fall of last year. He has not noticed any significant edema of the right lower extremity. He has been having normal bowel movements every day. He reports that when he does urinate he does not have any sensation of incomplete bladder emptying but he has not had much urine output for the last week. He denies any fevers or chills. He reports that he has a relatively good appetite until recently. He denies any nausea or vomiting. He has had a slow gradual weight loss over the last couple of years. He denies any confusion but is quite fatigued. He is alert oriented x4 at the time of my evaluation. In the ER was found be markedly hyperkalemic with acute renal failure and was Lasix, dextrose, bicarb push, 10 mg of albuterol nebulizer and insulin. EKG was performed but did not demonstrate much in the way of peaked T-waves despite patient's potassium being 8. Patient was subsequently admitted to IMU for further management. Review of Systems Review of Systems: 12 systems were reviewed with pertinent positives and negatives per HPI. Except as documented in the HPI, all other systems were reviewed and are negative. [facility] Past Medical History Medical History (Updated 07/09/25 @ 02:30 by Aysha White DO) BPH (benign prostatic hyperplasia) Diastolic dysfunction Grade 1 diastolic dysfunction noted on echocardiogram from 2021. At that time systolic function was hyperdynamic with a EF greater than 70 COPD (chronic obstructive pulmonary disease) Seasonal allergic rhinitis Mixed hyperlipidemia total cholesterol 136, triglycerides 74, HDL 45 and LDL 76 on 08/10/2021. Total cholesterol 114, triglycerides 64, HDL 41, LDL 59 on 03/01/2023. Cholesterol 110, triglycerides 79, HDL 39, LDL 55 on 04/06/2024. Essential (primary) hypertension Bilateral carotid artery stenosis Chronic bilateral low back pain with bilateral sciatica Stenosis of left subclavian artery Aneurysm, ascending aorta Anemia (04/06/24) hemoglobin 11.1 on 04/06/2024. Abnormal fasting glucose (08/09/22) glucose 109 on 08/09/2022. fasting glucose 93 with hemoglobin A1c 5.7 on 03/01/2023. glucose 102 with hemoglobin A1c 6.0 on 04/06/2024. Peripheral arterial disease (~12/08/20) SAEED 0.55 left foot on home a visit by insurance 12/08/2020 Vitamin B12 deficiency anemia Vitamin B12 low at 155 on 08/10/2021. Level greater than 2000 on 03/01/2023. Normal at greater than 2000 with hemoglobin 11.1 on 04/06/2024. Vitamin D deficiency, unspecified Normal at 52.1 on 03/01/2023. Normal at 41.9 on 04/06/2024. Gastroesophageal reflux disease Surgical History Surgical History (Updated 07/09/25 @ 02:42 by Aysha White DO) Status post-operative repair of closed hip fracture (~2023) History of appendectomy History of left-sided carotid endarterectomy (~2011) History of four vessel coronary artery bypass graft (~2000) Family History Family History (Updated 07/09/25 @ 00:50 by Aysha White DO) Sibling Leukemia Cerebrovascular accident Sibling Diabetes mellitus Son Diabetes mellitus Social History Social History (Updated 07/09/25 @ 02:41 by Aysha White DO) Social History: The patient lives in his own home. I believe he said he is retired from [employer]. According to past records the patient smoked between 1-2 packs of cigarettes per day for 55 years. He quit smoking in 2021. He used to drink 5 to 6 times a week but quit drinking approximately 2011. He has a daughter and a son. He ambulates with a cane. Code status: DNR/DNI Surrogate decision maker: He wants his son to be his surrogate decision maker. Smoking packs per day: 1.5 Smoking cigarettes per day: 30.0 Years smoked: 55 Smoking pack-years: 82.50 Smoking status: Former smoker Tobacco type: cigarettes Smoking end date: 06/26/24 Alcohol intake: former Drinks per week: 1 Substance use: never Substance use type: does not use Lack of Transportation: No Lack of Food: Never True Current Housing: I Have Housing Concerned About Future Housing: No Difficulty Paying Gas/Electric Bills: No Difficulty Paying for Meds: No Currently Unemployed: No Education: High School Diploma/GED Difficulty w/ Childcare or Family Care: No Spiritual care concerns: No Meds Home Medications and Allergies Home Medications ?Medication ?Instructions ?Recorded ?Confirmed ?Type acetaminophen 325 mg capsule 325 mg PO Q6H PRN Pain 08/02/19 07/08/25 History aspirin 81 mg tablet,delayed 81 mg PO HS 08/02/19 07/08/25 History release (Adult Aspirin Regimen) cholecalciferol (vitamin D3) 50 2,000 unit PO HS 02/19/20 07/08/25 History mcg (2,000 unit) tablet cyanocobalamin (vitamin B-12) 1,000 mcg PO HS 02/11/22 07/08/25 History 1,000 mcg tablet docusate calcium 240 mg capsule 240 mg PO DAILY #30 caps 05/27/24 07/08/25 Rx amlodipine 10 mg-benazepril 40 mg 1 cap PO DAILY #90 caps 11/13/24 07/08/25 Rx capsule atorvastatin 20 mg tablet 20 mg PO DAILY #90 tabs 02/05/25 07/08/25 Rx tramadol 50 mg tablet 100 mg (2 x 50 mg) PO QID PRN pain 04/11/25 07/08/25 Rx #240 tabs tamsulosin 0.4 mg capsule 0.4 mg PO QHS #30 caps 05/13/25 07/08/25 Rx celecoxib 200 mg capsule 200 mg PO QHS pain 07/08/25 07/08/25 History latanoprost 0.005 % eye drops 1 drp EACH EYE QHS 07/08/25 07/08/25 History Allergies Allergy/AdvReac Type Severity Reaction Status Date / Time ibuprofen Allergy Unknown Itching Verified 07/08/25 22:34 propranolol AdvReac hives Verified 07/08/25 22:34 Vital Signs Vital Signs - 24 hr 07/08/25 16:32 07/08/25 16:39 07/08/25 16:42 Temperature 97.6 F Pulse Rate 70 Respiratory Rate 24 H Blood Pressure 108/62 Pulse Oximetry 82 L 69 L 85 L Oxygen Delivery Room Air Oxygen Flow Rate 07/08/25 16:45 07/08/25 16:46 07/08/25 16:55 Temperature Pulse Rate 74 74 Respiratory Rate 25 H 23 H 25 H Blood Pressure 129/52 L Pulse Oximetry 96 97 95 Oxygen Delivery Non-Rebreather Mask Oxygen Flow Rate 15 07/08/25 17:00 07/08/25 17:00 07/08/25 17:15 Temperature Pulse Rate 69 69 Respiratory Rate 18 22 H Blood Pressure Pulse Oximetry 94 97 96 Oxygen Delivery Non-Rebreather Mask Oxygen Flow Rate 15 07/08/25 17:30 07/08/25 17:42 07/08/25 17:45 Temperature Pulse Rate 71 70 72 Respiratory Rate 24 H 25 H 23 H Blood Pressure 121/37 L Pulse Oximetry 92 93 89 L Oxygen Delivery Oxygen Flow Rate 07/08/25 17:46 07/08/25 18:00 07/08/25 18:00 Temperature Pulse Rate 71 71 72 Respiratory Rate 26 H 28 H 19 Blood Pressure 115/35 L Pulse Oximetry 94 98 Oxygen Delivery Oxygen Flow Rate 07/08/25 18:01 07/08/25 18:16 07/08/25 18:30 Temperature Pulse Rate 95 71 72 Respiratory Rate 28 H 29 H 30 H Blood Pressure 123/49 L Pulse Oximetry 98 91 91 Oxygen Delivery Oxygen Flow Rate 07/08/25 18:31 07/08/25 18:53 07/08/25 19:00 Temperature Pulse Rate 75 76 74 Respiratory Rate 25 H 25 H 20 Blood Pressure 123/51 L Pulse Oximetry 88 L 86 L 83 L Oxygen Delivery Oxygen Flow Rate 07/08/25 19:01 07/08/25 19:25 07/08/25 19:36 Temperature Pulse Rate 75 80 Respiratory Rate 24 H 27 H Blood Pressure 103/44 L Pulse Oximetry 100 99 Oxygen Delivery BiPAP BiPAP Oxygen Flow Rate 07/08/25 19:37 07/08/25 19:47 07/08/25 20:21 Temperature Pulse Rate 80 86 95 Respiratory Rate 27 H 18 21 H Blood Pressure 113/55 L 121/50 L Pulse Oximetry 100 100 Oxygen Delivery BiPAP Oxygen Flow Rate 07/08/25 21:01 07/08/25 21:27 07/08/25 22:16 Temperature Pulse Rate 88 83 Respiratory Rate 25 H 27 H Blood Pressure 124/51 L 128/56 L Pulse Oximetry 100 100 100 Oxygen Delivery BiPAP Oxygen Flow Rate 07/08/25 22:23 07/09/25 00:00 Temperature 97.6 F Pulse Rate 91 94 Respiratory Rate 27 H 22 H Blood Pressure 109/47 L Pulse Oximetry 96 100 Oxygen Delivery BiPAP Oxygen Flow Rate Exam Narrative: Weight 57.9 kg BMI 19.4 Const: Other: Elderly, thin body habitus, moderately ill-appearing HENMT: Other: Temporal wasting, Mucous membranes are dry, edentulous in upper and lower jaw, head is normocephalic atraumatic Eyes: Other: Pupils are equal and reactive with evidence of bilateral lens implants noted, positive conjunctival pallor, no scleral icterus, extraocular movements intact Neck: Other: No lymphadenopathy, prominent jugular veins Resp: Other: Markedly decreased breath sounds bilaterally both anterior and posterior lung urrutia, patient had marked work of breathing with BiPAP. Patient was given a trial off of BiPAP and was actually breathing much more comfortable without BiPAP and labored respirations ceased patient was maintaining oxygen saturations at 100% on 5 L. Cardio: Other: Sinus tachycardia, 2+ bilateral radial pedal pulses, no murmur, prominent jugular veins but given thin body habitus and level of pains JVD seems less likely GI: Other: Soft, nontender, nondistended, positive bowel sounds : Other: No suprapubic tenderness to palpation no distension Skin: Other: Poor skin turgor, no rashes or open wounds although I did not roll the patient to evaluate his back or buttocks, no foot wounds Neuro: Other: Alert oriented x4, speech is clear, no facial asymmetry, no localizing neurologic deficits noted during the course of conversation Extrem: Other: No cyanosis, difficult to assess for clubbing of patient's toenails due to thick onychomycosis, patient has pitting edema of the left leg up through the thigh with old surgical scar to the lateral left thigh, 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 how evidence of clubbing Psych: Other: Appropriate mood and affect, pleasant and cooperative, judgment and insight intact H&P: Results Labs Labs: Laboratory Tests 07/08/25 17:43 07/08/25 23:20 07/08/25 07/08/25 07/08/25 17:43 18:38 19:51 WBC 12.6 H RBC 3.23 L Hgb 9.1 L Hct 31.5 L MCV 97.5 MCH 28.2 MCHC 28.9 L RDW 15.3 H Plt Count 170 MPV 11.5 H Immature Gran % (Auto) Not Reportable Neut % (Auto) Not Reportable Lymph % (Auto) Not Reportable Lewis % (Auto) Not Reportable Eos % (Auto) Not Reportable Baso % (Auto) Not Reportable Lymph # (Auto) Not Reportable Lewis # (Auto) Not Reportable Eos # (Auto) Not Reportable Baso # (Auto) Not Reportable Abs Immat Gran (auto) Not Reportable Absolute Neuts (auto) Not Reportable Absolute Nucleated RBC Not Reportable Total Counted 100 Neutrophils % (Manual) 87 H Band Neutrophils % 0 Lymphocytes % (Manual) 11.0 L Monocytes % (Manual) 2 L Nucleated RBC % Not Reportable Abs Neuts (Manual) 10.96 H Abs Lymphs (Manual) 1.38 Abs Monocytes (Manual) 0.25 Platelet Estimate Adequate Hypochromasia 1+ Anisocytosis 2+ Schistocytes None seen Puncture Site Right brachial ABG pH 7.128 L* ABG pCO2 56.0 H ABG pO2 106.8 H ABG PO2/FiO2 Ratio 1.78 ABG HCO3 18.1 L ABG O2 Saturation 96.0 ABG O2 Content 12.8 L ABG Base Excess -10.8 A-a Gradient 259.4 Oxyhemoglobin 95.4 Carboxyhemoglobin 0.5 Methemoglobin 0.4 Reduced Hemoglobin 3.7 Total Hemoglobin 9.4 L O2 Delivery Device Bipap O2 Liters/Min Not Reportable FiO2 60 Expiratory Pressure 8 Inspiratory Pressure 16 Sodium 140 Potassium 8.0 H* Chloride 108 H Carbon Dioxide 19 L Anion Gap 13 H BUN 91 H D Creatinine 4.80 H Estim Creat Clear Calc 8 Estimated GFR 12 L Glucose 118 H POC Capillary Glucose Lactic Acid 1.4 Calcium 9.2 Total Bilirubin 0.3 AST 90 H ALT 49 Alkaline Phosphatase 118 NT-Pro-B Natriuret Pep > 85101 H Total Protein 6.7 Albumin 3.8 07/08/25 07/08/25 19:59 23:20 WBC RBC Hgb Hct MCV MCH MCHC RDW Plt Count MPV Immature Gran % (Auto) Neut % (Auto) Lymph % (Auto) Lewis % (Auto) Eos % (Auto) Baso % (Auto) Lymph # (Auto) Lewis # (Auto) Eos # (Auto) Baso # (Auto) Abs Immat Gran (auto) Absolute Neuts (auto) Absolute Nucleated RBC Total Counted Neutrophils % (Manual) Band Neutrophils % Lymphocytes % (Manual) Monocytes % (Manual) Nucleated RBC % Abs Neuts (Manual) Abs Lymphs (Manual) Abs Monocytes (Manual) Platelet Estimate Hypochromasia Anisocytosis Schistocytes Puncture Site ABG pH ABG pCO2 ABG pO2 ABG PO2/FiO2 Ratio ABG HCO3 ABG O2 Saturation ABG O2 Content ABG Base Excess A-a Gradient Oxyhemoglobin Carboxyhemoglobin Methemoglobin Reduced Hemoglobin Total Hemoglobin O2 Delivery Device O2 Liters/Min FiO2 Expiratory Pressure Inspiratory Pressure Sodium 138 Potassium 7.3 H* Chloride 111 H Carbon Dioxide 15 L Anion Gap 12 BUN 93 H Creatinine 5.09 H Estim Creat Clear Calc 8 Estimated GFR 11 L Glucose 96 POC Capillary Glucose 170 H Lactic Acid Calcium 9.4 Total Bilirubin AST ALT Alkaline Phosphatase NT-Pro-B Natriuret Pep Total Protein Albumin Impressions Chest X-Ray 07/08/25 17:54 IMPRESSION: No acute pulmonary findings. EKG: Test Date: 2025-07-08 18:56:55 Measurements Intervals [place] Rate: 74 P: 3 NH: 173 QRS: 76 QRSD: 142 T: 194 QT: 364 QTc: 405 Interpretive Statements SINUS RHYTHM POSSIBLE LEFT ATRIAL ENLARGEMENT LEFT BUNDLE BRANCH BLOCK ABNORMAL ECG Compared to ECG 07/08/2025 16:42:01 NO SIGNIFICANT CHANGE Assessment and Plan Assessment and plan (1) Respiratory failure: Qualifiers: Chronicity: acute Respiratory failure complication: hypoxia and hypercapnia Qualified Code(s): J96.01 - Acute respiratory failure with hypoxia; J96.02 - Acute respiratory failure with hypercapnia Code(s): J96.90 - Respiratory failure, unspecified, unspecified whether with hypoxia or hypercapnia Status: Acute (2) Hyperkalemia: Code(s): E87.5 - Hyperkalemia Status: Acute (3) Acute kidney injury: Code(s): N17.9 - Acute kidney failure, unspecified Status: Acute (4) COPD (chronic obstructive pulmonary disease): Qualifiers: COPD type: COPD with acute exacerbation Qualified Code(s): J44.1 - Chronic obstructive pulmonary disease with (acute) exacerbation Code(s): J44.9 - Chronic obstructive pulmonary disease, unspecified Status: Acute (5) Acute hyperkalemia: Code(s): E87.5 - Hyperkalemia Status: Acute (6) BPH (benign prostatic hyperplasia): Qualifiers: Lower urinary tract symptom presence: symptoms absent Qualified Code(s): N40.0 - Benign prostatic hyperplasia without lower urinary tract symptoms Code(s): N40.0 - Benign prostatic hyperplasia without lower urinary tract symptoms Status: Acute (7) Edema of left lower extremity: Code(s): R60.0 - Localized edema Status: Chronic (8) Goals of care, counseling/discussion: Code(s): Z71.89 - Other specified counseling Status: Acute Plan The patient's ABG demonstrates evidence of chronic hypercapnic respiratory failure with patient now developing acute hypoxic respiratory failure and complicated by acute metabolic acidosis due to acute renal failure. Patient was placed on BiPAP in the ER with initial improvement in work of breathing. At the time my evaluation the patient was having labored respirations in seemed more distressed with BiPAP on. I subsequently switch the patient to nasal cannula oxygen and the patient was satting 100% on 5 L. I discussed patient's care with the respiratory therapist and will change the patient to low-flow oxygen and wean for goal oxygen saturations of 88-92. Given that the patient's repeat BMP demonstrated persistent hyperkalemia and worsening renal function despite Lasix and given the patient's report that his lower extremity swelling on the left is chronic following hip fracture as well as denying symptoms of orthopnea or paroxysmal nocturnal dyspnea I feel the patient's respiratory symptoms are not due to fluid overload. Instead I suspect the patient is more intravascularly volume depleted. Has not yet produced urine for specimen. Bladder scan demonstrated only about 80 mL in the bladder. At this time will give patient 1 L of fluid bolus or 4 hours. Will just ?bolus? the bicarb drip that was just started. Then will decrease the patient's fluid rate back down to 125 mL an hour. Given that the patient potassium is markedly elevated with stable cardiac rhythm and is likely has some component of chronic kidney disease and is now developed an acute component. Although patient's renal function was normal in 2021. Will obtain UA and urine electrolytes. Will check renal ultrasound. Patient's potassium is still quite elevated. Will repeat dosing of sodium bicarb push, calcium gluconate, insulin and glucose. Will add an hour long nebulizer treatment. The patient did not receive Kayexala or Lokelma in the ER. Will add Lokelma 1 dose now and will repeat dose b.i.d. thereafter until potassium improves. Cause for the patient's acute kidney injury likely due to combination of volume depletion, nephrotoxic medication use (Celebrex and ALLIE-inhibitor). Chronic urinary retention seems somewhat less likely given that the patient's bladder is currently empty. Will continue patient's home Flomax. The patient is adamant that he does not want hemodialysis. He states that if his renal function were to continue to worsen that he understands that his potassium will continue to climb and that he will develop cardiac arrhythmia. He stated that in that case he would want to be allowed a natural . Nephrology has been consulted. Will repeat BMP, phosphorus, magnesium and CBC with a.m. labs. Will change diet to renal dialysis diet Patient does have a history of COPD. He has decreased breath sounds on exam. His ABG suggests that the patient has some chronic hypercapnia. I suspect that prior the patient's respiratory symptoms on presentation was due to COPD exacerbation. Patient is only now requiring minimal oxygen supplementation. Will continue patient on scheduled nebulizer treatments for possible COPD exacerbation and will start patient on prednisone 40 mg p.o. daily. Patient does have lower extremity swelling of the left lower extremity he reports chronic since last year when he had a hip repaired. He does not have any significant pitting edema of the right lower extremity and has no anasarca. He does have some prominent jugular veins but I think a component of this appearance is due to the patient's chronic protein malnutrition. However patient does have diastolic dysfunction noted on prior echocardiogram from several years ago and has a history of coronary artery disease. Will check echocardiogram to evaluate cardiac structure and function. Left lower extremity edema is chronic. However given respiratory distress will check venous of the left lower extremity and will check D-dimer. 55 minute spent in critical care activities. Due to a high probability of clinically significant, life threatening deterioration, the patient required my highest level of preparedness to intervene emergently and I personally spent this critical care time directly and personally managing the patient. This critical care time included obtaining a history; examining the patient; pulse oximetry; ordering and review of studies; arranging urgent treatment with development of a management plan; evaluation of patient's response to treatment; frequent reassessment; and discussions with other providers. It was exclusive of separately billable procedures and treating other patients and teaching time. Please see Assessment and Plan section and the rest of the note for further information on patient assessment and treatment. Quality VTE Prophylaxis VTE prophylaxis: pharmacologic ordered (Heparin 5000 units subQ q.12 hours) Hospitalist [facility] Advance Care Plan I have confirmed that the patient's Advanced Care Plan is present, code status is documented, or surrogate decision maker is listed in patient medical record.: Yes Medication Reconciliation I have utilized all available resources to obtain, update and review the patients current medications (includes all prescriptions, OTC, herbals, cannabis, and nutritional supplements).: Yes
[2025-07-09] MEDS: ALBUTEROL SULFATE NEB 2.5 MG/3 ML INH 15 MG INHALATION ×2 (00:46→06:18)
[2025-07-09] MEDS: SODIUM BICARBONATE 8.4% 150 MEQ in DEXTROSE 5% 1,000 ML 950 ML 75 MEQ IV CONT ×2 (01:02→12:14)
[2025-07-09] MEDS: DEXTROSE 50% 25 GM/50 ML SYRINGE IV PUSH ×2 (01:07→06:47)
[2025-07-09] MEDS: SODIUM BICARBONATE 8.4% 50 MEQ/50 ML SYRINGE IV PUSH ×2 (01:07)
[2025-07-09] MEDS: CALCIUM GLUCONATE 1,000 MG/10 ML VIAL 1000 MG IV PUSH ×2 (01:08→06:45)
[2025-07-09] MEDS: INSULIN HUMAN REGULAR (*BKC) 100 UNITS/ML 10 UNITS IV PUSH ×2 (01:09→06:46)
[2025-07-09] MEDS: SODIUM ZIRCONIUM CYCLOSILICATE 10 GM POWD.PACK PO ×3 (01:39→15:49)
[2025-07-09] MEDS: SODIUM BICARBONATE 8.4% 150 MEQ in DEXTROSE 5% 1,000 ML 950 ML 250 MEQ XX (02:00)
[2025-07-09] MEDS: SODIUM BICARBONATE 8.4% 150 MEQ in DEXTROSE 5% 1,000 ML 950 ML 125 MEQ IV CONT (03:12)
--- NOTE | 2025-07-09 04:58 | PC.NURSE ---
Pt refusing to wear bipap with complaints of it being painful to the right ear. Pt placed on 15L high flow nasal cannula and educated on the need for bipap.
[2025-07-09 05:24] LABS: Hematocrit 29.9 % (42.0-52.0); Hemoglobin 8.7 g/dL (14.0-18.0); Mean Corpuscular HGB Conc 29.1 g/dl (32-36); Mean Corpuscular Hemoglobin 28.2 pg (26-34); Mean Corpuscular Volume 97.1 fl (80-100); Platelet Count Result 169 k/mm3 (150-375); Red Blood Count 3.08 M/mm3 (4.6-6.20); White Blood Count 13.1 K/mm3 (4.5-10.0)
[2025-07-09 05:37] LABS: Alanine Aminotransferase 63 U/L (6-50); Albumin Level 3.7 g/dL (3.5-5.1); Alkaline Phosphatase 103 U/L (38-126); Anion Gap 13 mmol/L (4-12); Aspartate Amino Transferase 93 U/L (17-59); Bilirubin,Total 0.2 mg/dL (0.2-1.3); Blood Urea Nitrogen 100 mg/dL (9-20); Calcium 9.4 mg/dL (8.4-10.2); Carbon Dioxide 22 mmol/L (22-30); Chloride 105 mmol/L (98-107); Estimated CRCL calculation 8 ml/min; Estimated Glomerular Filt Rate 11; Glucose 161 mg/dL (65-110); Sodium 140 mmol/L (137-145); Total Protein 6.5 g/dL (6.3-8.2)
[2025-07-09 05:40] LABS: Potassium 6.5 mmol/L (3.4-5.0)
--- NOTE | 2025-07-09 07:54 | PCRCNOTE ---
RT walked in Room pt had his BIPAP off. RT explained the importance of wearing the BIPAP. I also explained to pt that his oxygen level is low. Pt still refused to wear the BIPAP. RT explained and educated pt on the importance. PT still refused. RN aware.
[2025-07-09] MEDS: FUROSEMIDE INJ 40 MG/4 ML VIAL IV PUSH (09:27)
[2025-07-09 09:42] LABS: Iron 30 ug/dL (49-181)
[2025-07-09 09:52] LABS: Percent Iron Saturation 9 % (20-50)
[2025-07-09 10:24] LABS: Ferritin 29.20 ng/mL (11.1-264)
[2025-07-09] MEDS: PERFLUTREN LIPID MICROSPHERES 1.5 ML VIAL DILUTED TO 10 ML TOTAL VOLUME IV PUSH (10:45)
--- NOTE | 2025-07-09 10:45 | IVDEFINITY ---
Prior to administration of IV Definity the patient was educated on the risks and benefits of the imaging enhancing agent including potential adverse side effects. The patient verbalized understanding. Allergies were verified. No exclusion criteria were identified and at least one of the following inclusion criteria were met: 1) physician request, 2) patient technically difficult to image (per the [place] [employer] guidelines of two or more segments not discernable within the apical view), or 3) questionable left ventricular function. ?
[2025-07-09 10:48] LABS: Alveolar/Arterial O2 Gradient 521.6 mmHg; Fractional Inspired Oxygen 90 %; HCO3 ABG 22.7 mEq/l (22.0-26.0); Oxygen Content ABG 11.9 %vol (16.0-22.0); Oxygen Saturation ABG 90.6 % (95.0-100.0); PCO2 ABG 51.2 mmHg (35.0-45.0); PO2 ABG 67.6 mmHg (80.0-100.0); PO2 FiO2 Ratio Arterial Blood 0.75 %
[2025-07-09 10:51] LABS: Liters per Minute 60.0 LPM; Modified Allen's Test Pass; Site Drawn RIGHT RADIAL
[2025-07-09 10:55] LABS: Vitamin B12 > 1000.0 pg/mL (239-931)
--- NOTE | 2025-07-09 11:00 | P.CONNP_ITS ---
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 -- HOWEVER, patient refusing this intervention * follow repeat labs and UOP (2) Hyperkalemia: Code(s): E87.5 - Hyperkalemia Status: Acute Assessment and Plan: * quite severe on presentation * ongoing medical management instituted * follow trend of repeat K+ levels (3) Acute hypoxic respiratory failure: Code(s): J96.01 - Acute respiratory failure with hypoxia Status: Acute Assessment and Plan: * presumably secondary to #4 * BiPAP therapy as tolerated * monitor respiratory status (4) COPD exacerbation: Code(s): J44.1 - Chronic obstructive pulmonary disease with (acute) exacerbation Status: Acute Assessment and Plan: * as noted on presentation * continue current therapy: * supplemental oxygen * BiPAP therapy * nebulizer treatments * steroids * follow clinical status (5) Metabolic acidosis: Code(s): E87.20 - Acidosis, unspecified Status: Acute Assessment and Plan: * resolving with bicarb gtt * follow serial labs * follow CO2 levels (6) Anemia: Qualifiers: Anemia type: unspecified type Qualified Code(s): D64.9 - Anemia, unspecified Code(s): D64.9 - Anemia, unspecified Status: Acute Assessment and Plan: * due to acute illness and STEFAN (and possible CKD) * known history of b12 deficiency * check anemia studies * follow trend of H/H (7) Congestive heart failure: Code(s): I50.9 - Heart failure, unspecified Status: Acute Assessment and Plan: * known history of diastolic heart failure * elevated BNP noted * check Echo (8) Essential (primary) hypertension: Code(s): I10 - Essential (primary) hypertension Status: Chronic Assessment and Plan: * noted history * noted hypotension on presentation * reasonable control at this time * follow trend of hemodynamics Long extensive discussion (> 20 minutes) with the patient regarding his ongoing worsening/deteriorating renal function in conjunction with persistent/recurrent hyperkalemia despite ongoing aggressive medical management. I voiced my concerns that he may require renal replacement therapy/dialysis if these issues do not start to improve. 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 We will continue ongoing aggressive medical management as tolerated which may help stabilize his potassium level but I worry that his volume status, fluctuating acidosis, and respiratory issues may further decline as his kidney function worsens as well. I will continue to follow the patient with you while he remains hospitalized and make further recommendations as deemed necessary. Thank you for allowing me to participate in the care of this patient. L History of Present Illness Reason for Consult Consult date: 07/09/25 Reason for consult: acute renal failure and hyperkalemia Chief Complaint Chief complaint: STEFAN, Hyperkalemia, Respiratory failure History of Present Illness Narrative: The patient is an 84-year-old male with an extensive past medical history as outlined below who presented to [facility] Emergency Room due to complaints of shortness of breath and generalized weakness. The patient has been apparently having shortness of breath for the last week if not longer and it has been progressively getting worse. This is further complicated by the fact that he has difficulty ambulating due to significant arthritis in his lower extremities and dyspnea with exertion. He denies any chest pain or chest pressure but he does admit to a mild cough. He denies any apparent fevers, chills, nausea, vomiting, diarrhea, hematochezia, melena, abdominal pain, dysuria, dizziness, lightheadedness, or palpitations. he reports no symptoms of her of orthopnea, paroxysmal nocturnal dyspnea, or worsening lower extremity edema/swelling. He does also admit that his urine output has been somewhat reduced in the past week as well. As his respiratory status continued to decline in association with increasing weakness, he presented to the emergency room for further assessment. Workup and evaluation emergency room demonstrated the patient to be hemodynamically stable and afebrile but he was noted be quite hypoxic on room air. Triage notes mention that his oxygen saturations were fluctuating anywhere from 69-72% on room air and with application of supplemental oxygen by nasal cannula of up to 6 L his O2 saturations only improved up to 84%. He was subsequently transition to a non-rebreather mask which helped his oxygenation but did not really improve his respiratory status. He was subsequently transitioned to BiPAP with improvement in both his oxygenation and respiratory status. Routine blood work demonstrated white blood cell count of 12.6, hemoglobin 9.1, platelet count 170, sodium 140, potassium 8.0, bicarb 19, BUN 91, creatinine 4.8, with a glucose of 118, calcium 9.2 AST of 90, lactic acid 1.4, proBNP greater than 30,000, and an albumin of 3.8. His initial ABG showed a pH of 7.1-8, pCO2 of 56, and a PO2 of 106.8 on 60% FiO2 with BiPAP. His chest x-ray showed no acute pulmonary findings, and his EKG showed normal sinus rhythm with widened QRS, left bundle branch block, and left axis deviation but no significant peaked T-waves. Medical management was initiated for his hyperkalemia including IV Lasix, D50, IV insulin, albuterol nebulizer, and IV bicarbonate. the ER physician discussed with the patient the possible need for renal replacement therapy / dialysis given his acute kidney injury as well as his severe hyperkalemia and the patient was vehemently against dialysis as a therapeutic intervention. He was subsequently admitted to the hospital for further evaluation and therapy. Since his admission to the hospital, he has been initiated on steroids and ongoing BiPAP therapy for his suspected COPD exacerbation. Initially he was refusing further BiPAP therapy but then later on was more amenable to this intervention. Repeat labs overnight continued so persistent hyperkalemia requiring ongoing medical management and effort to correct this electrolyte abnormality. Due to his underlying metabolic acidosis, he was initiated on a bicarb drip as well. As the patient's D-dimer was elevated, he was initiated on a heparin drip as it was felt that he was not stable for a V/Q scan and could not undergo a CTA of his chest due to his renal dysfunction. Renal consultation was requested due to his presumed acute kidney injury/acute renal failure in association with significant hyperkalemia. Unfortunately, the only labs I have for comparison are from March of 2024 when his creatinine was 1.58 mg/dL and previous labs from 2021 to 2022 show a creatinine fluctuating around 1.1 - 1.2 mg/dL. Given his lack of significant EKG changes in spite of his severe hyperkalemia and associated mild metabolic acidosis, there is suspicion that he probably has some underlying chronic kidney disease present. He has received multiple rounds of medical management for his potassium level with a still remains elevated by his recent blood work. More concerning is the fact that his BUN and creatinine continue to decline/worsened as well. I discussed my concerns with the patient that he may require renal replacement therapy both for his renal dysfunction as well as his persistent hyperkalemia that has been somewhat unresponsive to medical therapy and he once again confirmed that he would not do dialysis under any circumstance. Currently, at the time my evaluation, his respiratory status seems to be under better control but he does appear to still have increased work of breathing. Review of Systems 2 Review of Systems: As per HPI. [facility] Past Medical History Medical History (Updated 07/09/25 @ 17:35 by Matt Villalobos MD) BPH (benign prostatic hyperplasia) Diastolic dysfunction Grade 1 diastolic dysfunction noted on echocardiogram from 2021. At that time systolic function was hyperdynamic with a EF greater than 70 COPD (chronic obstructive pulmonary disease) Stenosis of left subclavian artery Aneurysm, ascending aorta Anemia hemoglobin 11.1 on 04/06/2024. Abnormal fasting glucose (08/09/22) glucose 109 on 08/09/2022. fasting glucose 93 with hemoglobin A1c 5.7 on 03/01/2023. glucose 102 with hemoglobin A1c 6.0 on 04/06/2024. Peripheral arterial disease (~12/08/20) SAEED 0.55 left foot on home a visit by insurance 12/08/2020 Vitamin B12 deficiency anemia Vitamin B12 low at 155 on 08/10/2021. Level greater than 2000 on 03/01/2023. Normal at greater than 2000 with hemoglobin 11.1 on 04/06/2024. Vitamin D deficiency, unspecified Normal at 52.1 on 03/01/2023. Normal at 41.9 on 04/06/2024. Gastroesophageal reflux disease Bilateral carotid artery stenosis Chronic bilateral low back pain with bilateral sciatica Essential (primary) hypertension Mixed hyperlipidemia total cholesterol 136, triglycerides 74, HDL 45 and LDL 76 on 08/10/2021. Total cholesterol 114, triglycerides 64, HDL 41, LDL 59 on 03/01/2023. Cholesterol 110, triglycerides 79, HDL 39, LDL 55 on 04/06/2024. Seasonal allergic rhinitis Surgical History Surgical History (Updated 07/09/25 @ 02:42 by Aysha White DO) Status post-operative repair of closed hip fracture (~2023) History of appendectomy History of left-sided carotid endarterectomy (~2011) History of four vessel coronary artery bypass graft (~2000) Family History Family History (Updated 07/09/25 @ 00:50 by Aysha White DO) Sibling Leukemia Cerebrovascular accident Sibling Diabetes mellitus Son Diabetes mellitus Social History Social History (Updated 07/09/25 @ 02:41 by Aysha White DO) Social History: The patient lives in his own home. I believe he said he is retired from [employer]. According to past records the patient smoked between 1-2 packs of cigarettes per day for 55 years. He quit smoking in 2021. He used to drink 5 to 6 times a week but quit drinking approximately 2011. He has a daughter and a son. He ambulates with a cane. Code status: DNR/DNI Surrogate decision maker: He wants his son to be his surrogate decision maker. Smoking packs per day: 1.5 Smoking cigarettes per day: 30.0 Years smoked: 55 Smoking pack-years: 82.50 Smoking status: Former smoker Tobacco type: cigarettes Smoking end date: 06/26/24 Alcohol intake: former Drinks per week: 1 Substance use: never Substance use type: does not use Lack of Transportation: No Lack of Food: Never True Current Housing: I Have Housing Concerned About Future Housing: No Difficulty Paying Gas/Electric Bills: No Difficulty Paying for Meds: No Currently Unemployed: No Education: High School Diploma/GED Difficulty w/ Childcare or Family Care: No Spiritual care concerns: No Meds Home Medications and Allergies Home Medications ?Medication ?Instructions ?Recorded ?Confirmed ?Type acetaminophen 325 mg capsule 325 mg PO Q6H PRN Pain 07/08/25 History aspirin 81 mg tablet,delayed 81 mg PO HS 08/02/1906/26 History release (Adult Aspirin Regimen) cholecalciferol (vitamin D3) 50 2,000 unit PO HS 02/1807/08/25 History mcg (2,000 unit) tablet cyanocobalamin (vitamin B-12) 1,000 mcg PO HS 02/11/22 07/08/25 History 1,000 mcg tablet docusate calcium 240 mg capsule 240 mg PO DAILY #30 ca ps 05/27/24 07/08/25 Rx amlodipine 10 mg-benazepril 40 mg 1 cap PO DAILY #90 c aps 11/13/24 07/08/25 Rx capsule atorvastatin 20 mg tablet 20 mg PO DAILY #90 tabs 01/2407/08/25 Rx tramadol 50 mg tablet 100 mg (2 x 50 mg) PO QID ID N pain 04/11/25 07/08/25 Rx #240 tabs tamsulosin 0.4 mg capsule 0.4 mg PO QHS #30 caps 05/1307/08/25 Rx celecoxib 200 mg capsule 200 mg PO QHS pain 07/08/25 07/08/25 History latanoprost 0.005 % eye drops 1 drp EACH EYE QHS 07/0807/08/25 History Allergies Allergy/AdvReac Type Severity Reaction Status Date / Time ibuprofen Allergy Unknown Itching Verified 07/08/25 22:34 propranolol AdvReac hives Verified 07/08/25 22:34 Vital Signs Vital Signs Temp Pulse Resp BP Pulse Ox O2 Del Method O2 Flow Rate 07/09/25 10:00 110 H 07/09/25 08:14 95 High Flow Therapy with Na 60 07/09/25 08:00 74 L High Flow Nasal Cannula 13 07/09/25 08:00 110 H 07/09/25 07:55 96.8 F L 110 H 24 H 120/49 L 100 07/09/25 06:00 104 H 07/09/25 04:00 102 H 07/09/25 04:00 99.1 F 104 H 26 H 133/61 100 07/09/25 04:00 100 BiPAP 07/09/25 03:15 97 BiPAP 07/09/25 03:10 110 H 35 H 93 BiPAP 07/09/25 02:50 92 High Flow Nasal Cannula 10 07/09/25 02:00 109 H 07/09/25 00:47 89 27 H 07/09/25 00:00 93 07/09/25 00:00 100 BiPAP 07/09/25 00:00 97.6 F 94 22 H 109/47 L 100 07/08/25 22:23 91 27 H 96 BiPAP 07/08/25 22:16 128/56 L 100 07/08/25 21:27 83 27 H 100 BiPAP 07/08/25 21:01 88 25 H 124/51 L 100 07/08/25 20:21 95 21 H 121/50 L 07/08/25 19:47 86 18 113/55 L 100 07/08/25 19:37 80 27 H 100 BiPAP 07/08/25 19:36 99 BiPAP 07/08/25 19:25 80 27 H 100 BiPAP 07/08/25 19:01 75 24 H 103/44 L 07/08/25 19:00 74 20 83 L 07/08/25 18:53 76 25 H 86 L 07/08/25 18:31 75 25 H 123/51 L 88 L 07/08/25 18:30 72 30 H 91 07/08/25 18:16 71 29 H 91 07/08/25 18:01 95 28 H 123/49 L 98 07/08/25 18:00 72 19 98 07/08/25 18:00 71 28 H 07/08/25 17:46 71 26 H 115/35 L 94 07/08/25 17:45 72 23 H 89 L 07/08/25 17:42 70 25 H 121/37 L 93 07/08/25 17:30 71 24 H 92 07/08/25 17:15 69 22 H 96 07/08/25 17:00 69 18 97 07/08/25 17:00 94 Non-Rebreather Mask 15 07/08/25 16:55 25 H 95 Non-Rebreather Mask 15 Exam 2 Narrative: GENERAL APPEARANCE: thin, frail, and ill-appearing male in bed in mild distress HEENT: normocephalic, atraumatic, normal conjunctiva and sclera, nares patient NECK: no lymphadenopathy or thyromegaly MOUTH: dry mucous membranes CARDIOVASCULAR: RRR, normal S1 and S2, no rub detected RESPIRATORY: decreased breath sounds throughout ABDOMEN: soft, nontender, nondistended, positive bowel sounds present EXTREMITIES: no evidence of cyanosis or edema NEUROLOGICAL: alert and oriented x 3; no focal deficits noted Results Lab Results 07/09/25 16:09 07/09/25 16:09 Lab results: Most recent lab results ABG pH 7.337 (7.350-7.450) L 07/09/25 15:32 ABG pCO2 42.9 mmHg (35.0-45.0) 07/09/25 15:32 ABG pO2 78.0 mmHg (80.0-100.0) L 07/09/25 15:32 ABG HCO3 22.5 mEq/l (22.0-26.0) 07/09/25 15:32 ABG O2 Saturation 94.8 % (95.0-100.0) L 07/09/25 15:32 Calcium 9.4 mg/dL (8.4-10.2) 07/09/25 10:58 Phosphorus 6.4 mg/dL (2.5-4.5) H 07/09/25 10:58
--- NOTE | 2025-07-09 11:21 | PCRCNOTE ---
G late due to PCT cleaning pt.
[2025-07-09 11:49] LABS: Albumin Level 3.4 g/dL (3.5-5.1); Anion Gap 11 mmol/L (4-12); Blood Urea Nitrogen 105 mg/dL (9-20); Calcium 9.4 mg/dL (8.4-10.2); Carbon Dioxide 24 mmol/L (22-30); Chloride 104 mmol/L (98-107); Estimated CRCL calculation 8 ml/min; Estimated Glomerular Filt Rate 10; Glucose 103 mg/dL (65-110); Potassium 6.3 mmol/L (3.4-5.0); Sodium 139 mmol/L (137-145)
[2025-07-09 13:22] LABS: Alveolar/Arterial O2 Gradient 584.9 mmHg; Carboxyhemoglobin 0.7 % THb (0-2.0); Fractional Inspired Oxygen 100 %; HCO3 ABG 22.2 mEq/l (22.0-26.0); Methemoglobin ABG 0.3 %THb (0-1.5); Oxygen Content ABG 12.1 %vol (16.0-22.0); Oxygen Saturation ABG 94.6 % (95.0-100.0); PCO2 ABG 47.2 mmHg (35.0-45.0); PO2 ABG 80.9 mmHg (80.0-100.0); PO2 FiO2 Ratio Arterial Blood 0.81 %; Reduced Hemoglobin 5.6 %THb (0-5.0)
[2025-07-09 13:26] LABS: Modified Allen's Test Pass; Site Drawn RIGHT RADIAL
[2025-07-09] MEDS: IPRATROPIUM 0.5 MG/ALBUTEROL SULFATE 2.5 MG (BASE) AMPUL.NEB 3 ML INHALATION ×2 (14:49→20:35)
--- NOTE | 2025-07-09 14:57 | P.PNIM_ITS ---
Progress Note: A&P Assessment and Plan (1) Respiratory failure: Qualifiers: Chronicity: acute Respiratory failure complication: hypoxia and hypercapnia Qualified Code(s): J96.01 - Acute respiratory failure with hypoxia; J96.02 - Acute respiratory failure with hypercapnia Code(s): J96.90 - Respiratory failure, unspecified, unspecified whether with hypoxia or hypercapnia Status: Acute (2) Hyperkalemia: Code(s): E87.5 - Hyperkalemia Status: Acute (3) Acute kidney injury: Code(s): N17.9 - Acute kidney failure, unspecified Status: Acute (4) COPD (chronic obstructive pulmonary disease): Qualifiers: COPD type: COPD with acute exacerbation Qualified Code(s): J44.1 - Chronic obstructive pulmonary disease with (acute) exacerbation Code(s): J44.9 - Chronic obstructive pulmonary disease, unspecified Status: Acute (5) Acute hyperkalemia: Code(s): E87.5 - Hyperkalemia Status: Acute (6) BPH (benign prostatic hyperplasia): Qualifiers: Lower urinary tract symptom presence: symptoms absent Qualified Code(s): N40.0 - Benign prostatic hyperplasia without lower urinary tract symptoms Code(s): N40.0 - Benign prostatic hyperplasia without lower urinary tract symptoms Status: Acute (7) Edema of left lower extremity: Code(s): R60.0 - Localized edema Status: Chronic (8) Goals of care, counseling/discussion: Code(s): Z71.89 - Other specified counseling Status: Acute Plan Plan: * Respiratory Failure / COPD Exacerbation patien initially declining BiPAP and oxygen mask now accepting BiPAP and repeat abg and adjust * Continue scheduled nebulizer treatments. * Start prednisone 40 mg PO daily. * Monitor for respiratory distress. * * Acute Renal Failure / Metabolic Acidosis * Administer 1L IV fluid bolus over 4 hours, then decrease to 125 mL/hr. * Bolus sodium bicarbonate drip, then decrease rate. * Repeat BMP, phosphorus, magnesium, CBC with AM labs. * Obtain UA, urine electrolytes, and renal ultrasound. * Change diet to renal/dialysis diet. * Nephrology consulted. * Hyperkalemia * Repeat sodium bicarbonate push, calcium gluconate, insulin, and glucose. * Add 1-hour nebulizer treatment. * Continue Lokelma now, repeat BID until potassium improves. * Monitor cardiac rhythm. * Cardiac Evaluation * Order echocardiogram to assess cardiac structure and function. * Left Lower Extremity Edema * Chronic, but will check venous Doppler of left lower extremity and D-dimer due to respiratory distress. * Venous doppler negative Discussed plan of care with family and patient at bedside if patient goes back to rejecting care, will discuss hospice/palliative care with family DVT prophylaxis on Sq Heparin Subjective Date/time seen: 07/09/25 14:57 Interval history: Patient refusing treatment initially and has accepted to wear BiPAP mask today V/Q scan ordered and started on heparin infusion started Review of Systems Review of Systems: 12 systems were reviewed with pertinent positives and negatives per HPI. Except as documented in the HPI, all other systems were reviewed and are negative. Exam Narrative: Weight 57.9 kg BMI 19.4 Const: Other: Elderly, thin body habitus, moderately ill-appearing HENMT: Other: Temporal wasting, Mucous membranes are dry, edentulous in upper and lower jaw, head is normocephalic atraumatic Eyes: Other: Pupils are equal and reactive with evidence of bilateral lens implants noted, positive conjunctival pallor, no scleral icterus, extraocular movements intact Neck: Other: No lymphadenopathy, prominent jugular veins Resp: Other: Markedly decreased breath sounds bilaterally both anterior and posterior lung urrutia, patient had marked work of breathing with BiPAP. Patient was given a trial off of BiPAP and was actually breathing much more comfortable without BiPAP and labored respirations ceased patient was maintaining oxygen saturations at 100% on 5 L. Cardio: Other: Sinus tachycardia, 2+ bilateral radial pedal pulses, no murmur, prominent jugular veins but given thin body habitus and level of pains JVD seems less likely GI: Other: Soft, nontender, nondistended, positive bowel sounds : Other: No suprapubic tenderness to palpation no distension Skin: Other: Poor skin turgor, no rashes or open wounds although I did not roll the patient to evaluate his back or buttocks, no foot wounds Neuro: Other: Alert oriented x4, speech is clear, no facial asymmetry, no localizing neurologic deficits noted during the course of conversation Extrem: Other: No cyanosis, difficult to assess for clubbing of patient's toenails due to thick onychomycosis, patient has pitting edema of the left leg up through the thigh with old surgical scar to the lateral left thigh, 5/5 manager activities strength bilateral hands how evidence of clubbing Psych: Other: Appropriate mood and affect, pleasant and cooperative, judgment and insight intact Objective Data Vital Signs Vital Signs: Vital Signs - 24 hr 07/08/25 16:32 07/08/25 16:39 07/08/25 16:42 Temperature 97.6 F Pulse Rate 70 Respiratory Rate 24 H Blood Pressure 108/62 Pulse Oximetry 82 L 69 L 85 L Oxygen Delivery Room Air Oxygen Flow Rate Fraction of Inspired Oxygen 07/08/25 16:45 07/08/25 16:46 07/08/25 16:55 Temperature Pulse Rate 74 74 Respiratory Rate 25 H 23 H 25 H Blood Pressure 129/52 L Pulse Oximetry 96 97 95 Oxygen Delivery Non-Rebreather Mask Oxygen Flow Rate 15 Fraction of Inspired Oxygen 07/08/25 17:00 07/08/25 17:00 07/08/25 17:15 Temperature Pulse Rate 69 69 Respiratory Rate 18 22 H Blood Pressure Pulse Oximetry 94 97 96 Oxygen Delivery Non-Rebreather Mask Oxygen Flow Rate 15 Fraction of Inspired Oxygen 07/08/25 17:30 07/08/25 17:42 07/08/25 17:45 Temperature Pulse Rate 71 70 72 Respiratory Rate 24 H 25 H 23 H Blood Pressure 121/37 L Pulse Oximetry 92 93 89 L Oxygen Delivery Oxygen Flow Rate Fraction of Inspired Oxygen 07/08/25 17:46 07/08/25 18:00 07/08/25 18:00 Temperature Pulse Rate 71 71 72 Respiratory Rate 26 H 28 H 19 Blood Pressure 115/35 L Pulse Oximetry 94 98 Oxygen Delivery Oxygen Flow Rate Fraction of Inspired Oxygen 07/08/25 18:01 07/08/25 18:16 07/08/25 18:30 Temperature Pulse Rate 95 71 72 Respiratory Rate 28 H 29 H 30 H Blood Pressure 123/49 L Pulse Oximetry 98 91 91 Oxygen Delivery Oxygen Flow Rate Fraction of Inspired Oxygen 07/08/25 18:31 07/08/25 18:53 07/08/25 19:00 Temperature Pulse Rate 75 76 74 Respiratory Rate 25 H 25 H 20 Blood Pressure 123/51 L Pulse Oximetry 88 L 86 L 83 L Oxygen Delivery Oxygen Flow Rate Fraction of Inspired Oxygen 07/08/25 19:01 07/08/25 19:25 07/08/25 19:36 Temperature Pulse Rate 75 80 Respiratory Rate 24 H 27 H Blood Pressure 103/44 L Pulse Oximetry 100 99 Oxygen Delivery BiPAP BiPAP Oxygen Flow Rate Fraction of Inspired Oxygen 07/08/25 19:37 07/08/25 19:47 07/08/25 20:21 Temperature Pulse Rate 80 86 95 Respiratory Rate 27 H 18 21 H Blood Pressure 113/55 L 121/50 L Pulse Oximetry 100 100 Oxygen Delivery BiPAP Oxygen Flow Rate Fraction of Inspired Oxygen 07/08/25 21:01 07/08/25 21:27 07/08/25 22:16 Temperature Pulse Rate 88 83 Respiratory Rate 25 H 27 H Blood Pressure 124/51 L 128/56 L Pulse Oximetry 100 100 100 Oxygen Delivery BiPAP Oxygen Flow Rate Fraction of Inspired Oxygen 07/08/25 22:23 07/09/25 00:00 07/09/25 00:00 Temperature 97.6 F Pulse Rate 91 94 Respiratory Rate 27 H 22 H Blood Pressure 109/47 L Pulse Oximetry 96 100 100 Oxygen Delivery BiPAP BiPAP Oxygen Flow Rate Fraction of Inspired Oxygen 07/09/25 00:00 07/09/25 00:47 07/09/25 02:00 Temperature Pulse Rate 93 89 109 H Respiratory Rate 27 H Blood Pressure Pulse Oximetry Oxygen Delivery Oxygen Flow Rate Fraction of Inspired Oxygen 07/09/25 02:50 07/09/25 03:10 07/09/25 03:15 Temperature Pulse Rate 110 H Respiratory Rate 35 H Blood Pressure Pulse Oximetry 92 93 97 Oxygen Delivery High Flow Nasal Cannula BiPAP BiPAP Oxygen Flow Rate 10 Fraction of Inspired Oxygen 07/09/25 04:00 07/09/25 04:00 07/09/25 04:00 Temperature 99.1 F Pulse Rate 104 H 102 H Respiratory Rate 26 H Blood Pressure 133/61 Pulse Oximetry 100 100 Oxygen Delivery BiPAP Oxygen Flow Rate Fraction of Inspired Oxygen 07/09/25 06:00 07/09/25 07:55 07/09/25 08:00 Temperature 96.8 F L Pulse Rate 104 H 110 H 110 H Respiratory Rate 24 H Blood Pressure 120/49 L Pulse Oximetry 100 Oxygen Delivery Oxygen Flow Rate Fraction of Inspired Oxygen 07/09/25 08:00 07/09/25 08:14 07/09/25 10:00 Temperature Pulse Rate 110 H Respiratory Rate Blood Pressure Pulse Oximetry 74 L 95 Oxygen Delivery High Flow Nasal Cannula High Flow Therapy with Na Oxygen Flow Rate 13 60 Fraction of Inspired Oxygen 93 07/09/25 11:20 07/09/25 11:35 07/09/25 12:00 Temperature 98.6 F Pulse Rate 115 H 103 H 112 H Respiratory Rate 20 Blood Pressure 95/54 L Pulse Oximetry 90 93 Oxygen Delivery High Flow Therapy with Na Oxygen Flow Rate 60 Fraction of Inspired Oxygen 93 07/09/25 12:00 07/09/25 13:10 07/09/25 14:00 Temperature Pulse Rate 109 H 109 H Respiratory Rate 35 H Blood Pressure Pulse Oximetry 91 98 Oxygen Delivery High Flow Therapy with Na BiPAP Oxygen Flow Rate 60 Fraction of Inspired Oxygen 93 Intake/Output Intake/Output: Intake & Output 07/06/25 07/07/25 07/08/25 07/09/25 23:59 23:59 23:59 23:59 Intake Total 266.5 1674.1 Output Total 50 Balance 266.5 1624.1 Meds/Results Medications: Active Medications Generic Name Dose Route Start Last Admin Trade Name Freq PRN Reason Stop Dose Admin Acetaminophen 650 mg 07/08/25 20:40 Acetaminophen 325 Mg Tablet PO Q4H PRN Mild Pain (1-3) or Fever Hydrocodone Bitart/Acetaminophen 1 tab 07/08/25 20:40 Hydrocodone/Acetaminophen (*Crx) 5-325 Mg Tablet PO Q4H PRN Pain Rated 4-6 Albuterol/Ipratropium 3 ml 07/09/25 02:00 07/09/25 14:49 Ipratropium 0.5 Mg/Albuterol Sulfate 2.5 Mg (Base) Ampul.Neb 3 Ml INHALATION 3 ml Q6HRT GABY Administration Aspirin 81 mg 07/09/25 21:00 Aspirin 81 Mg Enteric Tablet PO HS GABY Docusate Sodium 100 mg 07/09/25 09:00 07/09/25 09:27 Docusate Sodium 100 Mg Capsule PO Not Given DAILY GABY Heparin Sodium (Porcine) 5,000 units 07/09/25 09:00 07/09/25 09:27 Heparin Sodium 5,000 Units/Ml Vial SUB-Q 5,000 units Q12HR GABY Administration Sodium Bicarbonate 150 meq/ 1,100 mls @ 75 mls/hr 07/09/25 06:00 07/09/25 12:14 Dextrose IV CONT 75 mls/hr .[id number] GABY Administration Iron Sucrose 200 mg/ Sodium 110 mls @ 220 mls/hr 07/09/25 14:54 Chloride IVPB 07/09/25 15:23 ONCE ONE Latanoprost 1 drop 07/09/25 21:00 Latanoprost 0.005% Op Soln 2.5 Ml Btl EACH EYE QHS [facility] Ondansetron HCl 4 mg 07/08/25 20:40 Ondansetron Inj 4 Mg/2 Ml Vial IV PUSH Q4H PRN Nausea Sodium Zirconium Cyclosilicate 10 gm 07/09/25 10:00 07/09/25 09:41 Sodium Zirconium Cyclosilicate 10 Gm Powd.Pack PO Not Given TID@1000,1500,2200 [facility] Tamsulosin HCl 0.4 mg 07/09/25 21:00 Tamsulosin Hcl 0.4 Mg Capsule PO QHS [facility] Radiology Results: ITS Impressions Chest X-Ray 07/08/25 17:54 IMPRESSION: No acute pulmonary findings. Venous Doppler Study 07/09/25 13:49 IMPRESSION: 1. No deep venous thrombosis. Renal Ultrasound 07/09/25 13:50 IMPRESSION: 1. Mild atrophy of right kidney. No hydronephrosis. 2. Chronic diffuse bladder wall thickening, likely secondary to chronic outlet obstruction from the enlarged prostate. Labs Labs: Laboratory Results - last 24 hr 07/08/25 07/08/25 07/08/25 17:43 18:38 19:51 WBC 12.6 H RBC 3.23 L Hgb 9.1 L Hct 31.5 L MCV 97.5 MCH 28.2 MCHC 28.9 L RDW 15.3 H Plt Count 170 MPV 11.5 H Immature Gran % (Auto) Not Reportable Neut % (Auto) Not Reportable Lymph % (Auto) Not Reportable [place] % (Auto) Not Reportable Eos % (Auto) Not Reportable Baso % (Auto) Not Reportable Lymph # (Auto) Not Reportable [place] # (Auto) Not Reportable Eos # (Auto) Not Reportable Baso # (Auto) Not Reportable Abs Immat Gran (auto) Not Reportable Absolute Neuts (auto) Not Reportable Absolute Nucleated RBC Not Reportable Total Counted 100 Neutrophils % (Manual) 87 H Band Neutrophils % 0 Lymphocytes % (Manual) 11.0 L Monocytes % (Manual) 2 L Nucleated RBC % Not Reportable Abs Neuts (Manual) 10.96 H Abs Lymphs (Manual) 1.38 Abs Monocytes (Manual) 0.25 Platelet Estimate Adequate Hypochromasia 1+ Anisocytosis 2+ Schistocytes None seen D-Dimer Puncture Site Right brachial ABG pH 7.128 L* ABG pCO2 56.0 H ABG pO2 106.8 H ABG PO2/FiO2 Ratio 1.78 ABG HCO3 18.1 L ABG O2 Saturation 96.0 ABG O2 Content 12.8 L ABG Base Excess -10.8 A-a Gradient 259.4 Oxyhemoglobin 95.4 Carboxyhemoglobin 0.5 Methemoglobin 0.4 Reduced Hemoglobin 3.7 Total Hemoglobin 9.4 L O2 Delivery Device Bipap O2 Liters/Min Not Reportable FiO2 60 Expiratory Pressure 8 Inspiratory Pressure 16 Sodium 140 Potassium 8.0 H* Chloride 108 H Carbon Dioxide 19 L Anion Gap 13 H BUN 91 H D Creatinine 4.80 H Estim Creat Clear Calc 8 Estimated GFR 12 L Glucose 118 H POC Capillary Glucose Lactic Acid 1.4 Calcium 9.2 Phosphorus Iron TIBC % Saturation Ferritin Total Bilirubin 0.3 AST 90 H ALT 49 Alkaline Phosphatase 118 NT-Pro-B Natriuret Pep > 94788 H Total Protein 6.7 Albumin 3.8 Vitamin B12 Folate 07/08/25 07/08/25 07/09/25 19:59 23:20 01:05 WBC RBC Hgb Hct MCV MCH MCHC RDW Plt Count MPV Immature Gran % (Auto) Neut % (Auto) Lymph % (Auto) [place] % (Auto) Eos % (Auto) Baso % (Auto) Lymph # (Auto) [place] # (Auto) Eos # (Auto) Baso # (Auto) Abs Immat Gran (auto) Absolute Neuts (auto) Absolute Nucleated RBC Total Counted Neutrophils % (Manual) Band Neutrophils % Lymphocytes % (Manual) Monocytes % (Manual) Nucleated RBC % Abs Neuts (Manual) Abs Lymphs (Manual) Abs Monocytes (Manual) Platelet Estimate Hypochromasia Anisocytosis Schistocytes D-Dimer Puncture Site ABG pH ABG pCO2 ABG pO2 ABG PO2/FiO2 Ratio ABG HCO3 ABG O2 Saturation ABG O2 Content ABG Base Excess A-a Gradient Oxyhemoglobin Carboxyhemoglobin Methemoglobin Reduced Hemoglobin Total Hemoglobin O2 Delivery Device O2 Liters/Min FiO2 Expiratory Pressure Inspiratory Pressure Sodium 138 Potassium 7.3 H* Chloride 111 H Carbon Dioxide 15 L Anion Gap 12 BUN 93 H Creatinine 5.09 H Estim Creat Clear Calc 8 Estimated GFR 11 L Glucose 96 POC Capillary Glucose 170 H 96 Lactic Acid Calcium 9.4 Phosphorus Iron TIBC % Saturation Ferritin Total Bilirubin AST ALT Alkaline Phosphatase NT-Pro-B Natriuret Pep Total Protein Albumin Vitamin B12 Folate 07/09/25 07/09/25 07/09/25 01:51 05:17 06:48 WBC 13.1 H RBC 3.08 L Hgb 8.7 L Hct 29.9 L MCV 97.1 MCH 28.2 MCHC 29.1 L RDW 15.0 H Plt Count 169 MPV 11.5 H Immature Gran % (Auto) Neut % (Auto) Lymph % (Auto) [place] % (Auto) Eos % (Auto) Baso % (Auto) Lymph # (Auto) [place] # (Auto) Eos # (Auto) Baso # (Auto) Abs Immat Gran (auto) Absolute Neuts (auto) Absolute Nucleated RBC Total Counted Neutrophils % (Manual) Band Neutrophils % Lymphocytes % (Manual) Monocytes % (Manual) Nucleated RBC % Abs Neuts (Manual) Abs Lymphs (Manual) Abs Monocytes (Manual) Platelet Estimate Hypochromasia Anisocytosis Schistocytes D-Dimer 1.64 H Puncture Site ABG pH ABG pCO2 ABG pO2 ABG PO2/FiO2 Ratio ABG HCO3 ABG O2 Saturation ABG O2 Content ABG Base Excess A-a Gradient Oxyhemoglobin Carboxyhemoglobin Methemoglobin Reduced Hemoglobin Total Hemoglobin O2 Delivery Device O2 Liters/Min FiO2 Expiratory Pressure Inspiratory Pressure Sodium 140 Potassium 6.5 H* Chloride 105 Carbon Dioxide 22 Anion Gap 13 H BUN 100 H Creatinine 5.14 H Estim Creat Clear Calc 8 Estimated GFR 11 L Glucose 161 H POC Capillary Glucose 163 H 136 H Lactic Acid Calcium 9.4 Phosphorus Iron 30 L TIBC 328 % Saturation 9 L Ferritin 29.20 Total Bilirubin 0.2 AST 93 H ALT 63 H Alkaline Phosphatase 103 NT-Pro-B Natriuret Pep Total Protein 6.5 Albumin 3.7 Vitamin B12 > 1000.0 H Folate 14.8 07/09/25 07/09/25 07/09/25 08:50 10:58 12:00 WBC RBC Hgb Hct MCV MCH MCHC RDW Plt Count MPV Immature Gran % (Auto) Neut % (Auto) Lymph % (Auto) [place] % (Auto) Eos % (Auto) Baso % (Auto) Lymph # (Auto) [place] # (Auto) Eos # (Auto) Baso # (Auto) Abs Immat Gran (auto) Absolute Neuts (auto) Absolute Nucleated RBC Total Counted Neutrophils % (Manual) Band Neutrophils % Lymphocytes % (Manual) Monocytes % (Manual) Nucleated RBC % Abs Neuts (Manual) Abs Lymphs (Manual) Abs Monocytes (Manual) Platelet Estimate Hypochromasia Anisocytosis Schistocytes D-Dimer Puncture Site Right radial Right radial ABG pH 7.265 L* 7.290 L* ABG pCO2 51.2 H 47.2 H ABG pO2 67.6 L 80.9 ABG PO2/FiO2 Ratio 0.75 0.81 ABG HCO3 22.7 22.2 ABG O2 Saturation 90.6 L 94.6 L ABG O2 Content 11.9 L 12.1 L ABG Base Excess -4.3 -4.3 A-a Gradient 521.6 584.9 Oxyhemoglobin 89.6 L 93.4 Carboxyhemoglobin 0.7 Methemoglobin 0.3 Reduced Hemoglobin 5.6 H Total Hemoglobin 9.4 L 9.1 L O2 Delivery Device Not Reportable Not Reportable O2 Liters/Min 60.0 Not Reportable FiO2 90 100 Expiratory Pressure Inspiratory Pressure Sodium 139 Potassium 6.3 H* Chloride 104 Carbon Dioxide 24 Anion Gap 11 BUN 105 H* Creatinine 5.26 H Estim Creat Clear Calc 8 Estimated GFR 10 L Glucose 103 POC Capillary Glucose Lactic Acid Calcium 9.4 Phosphorus 6.4 H Iron TIBC % Saturation Ferritin Total Bilirubin AST ALT Alkaline Phosphatase NT-Pro-B Natriuret Pep Total Protein Albumin 3.4 L Vitamin B12 Folate Quality VTE Prophylaxis VTE prophylaxis: pharmacologic ordered (Heparin 5000 units subQ q.12 hours)
[2025-07-09 15:41] LABS: Alveolar/Arterial O2 Gradient 592.1 mmHg; Carboxyhemoglobin 0.7 % THb (0-2.0); Fractional Inspired Oxygen 100 %; HCO3 ABG 22.5 mEq/l (22.0-26.0); Methemoglobin ABG 0.3 %THb (0-1.5); Oxygen Content ABG 12.5 %vol (16.0-22.0); Oxygen Saturation ABG 94.8 % (95.0-100.0); PCO2 ABG 42.9 mmHg (35.0-45.0); PO2 ABG 78.0 mmHg (80.0-100.0); PO2 FiO2 Ratio Arterial Blood 0.78 %; Reduced Hemoglobin 5.5 %THb (0-5.0)
[2025-07-09 15:43] LABS: Site Drawn LEFT RADIAL
[2025-07-09 15:44] LABS: Modified Allen's Test Pass
[2025-07-09] MEDS: IRON SUCROSE COMPLEX 200 MG in SODIUM CHLORIDE 0.9% IV 100 ML 220 MG IVPB (15:49)
[2025-07-09 16:28] LABS: Hematocrit 28.9 % (42.0-52.0); Hemoglobin 8.6 g/dL (14.0-18.0); Immature Granulocyte Percent A 0.8 % (0-0.5); Lymphocytes Absolute Auto 0.50 K/mm3 (0.9-3.2); Mean Corpuscular HGB Conc 29.8 g/dl (32-36); Mean Corpuscular Hemoglobin 28.5 pg (26-34); Mean Corpuscular Volume 95.7 fl (80-100); Nucleated Red Blood Cells Absolute Auto 0.000 K/mm3 (0.0-0.012); Nucleated Red Blood Cells Perc 0.0 % (0.0-0.2); Platelet Count Result 176 k/mm3 (150-375); Red Blood Count 3.02 M/mm3 (4.6-6.20); White Blood Count 20.4 K/mm3 (4.5-10.0)
[2025-07-09 16:40] LABS: INR 1.1; Prothrombin Time 14.3 Seconds (11.1-14.7)
[2025-07-09 16:41] LABS: Partial Thromboplastin Time 30.6 Seconds (22.3-36.8)
[2025-07-09 17:33] LABS: Anisocytosis 1+; Burr Cells 1+; Hypochromasia 1+; Schistocytes None Seen
[2025-07-09 17:48] LABS: Albumin Level 3.3 g/dL (3.5-5.1); Anion Gap 12 mmol/L (4-12); Blood Urea Nitrogen 105 mg/dL (9-20); Calcium 9.3 mg/dL (8.4-10.2); Carbon Dioxide 23 mmol/L (22-30); Chloride 103 mmol/L (98-107); Estimated CRCL calculation 8 ml/min; Estimated Glomerular Filt Rate 10; Glucose 133 mg/dL (65-110); Potassium 6.3 mmol/L (3.4-5.0); Sodium 138 mmol/L (137-145)
[2025-07-09] MEDS: MORPHINE SULFATE (*CRX) 4 MG/ML INJ IV PUSH (21:02)
--- NOTE | 2025-07-09 21:21 | P.PNCROSS_ITS ---
Event Note Event Note Event Note: The patient does not want to wear BiPAP. His is at bedside and after furt her discussion they have decided to proceed with comfort measures. Orders have been given for p.r.n. morphine and p.r.n. diazepam. The patient is on Airvo for comfort. When Airvo is discontinued the patient begins tripoding. All labs and imaging study orders have been discontinued.
--- NOTE | 2025-07-22 08:30 | P.DN_ITS ---
Discharge Summary Date and Time Date of : 07/09/25 Time of : 21:46 Provider Pronounced By: 2 RNs Name of First RN That Pronounced: trinh mckoy rn Name of Second RN That Pronounced: evelia muniz rn Probable Cause of Probable Cause of : Acute hypoxemic respiratory failure Acute renal failure Hyperkalemia Chronic obstructive pulmonary disease Summary Hospital Course: Mr. De Oliveira was an 84-year-old male with a complex medical history including COPD, hypertension, diastolic heart failure, CAD s/p CABG, BPH, chronic NSAID use, and CKD risk factors. He presented to the ER with progressive shortness of breath and generalized weakness. On arrival, he was found to be profoundly hypoxic (O2 sats 69-72% on room air), with improvement to the mid-80s on supplemental oxygen, but persistent respiratory distress. Initial labs revealed: * Severe hyperkalemia (K+ 8.0 mmol/L) * Acute kidney injury (Cr 4.8 mg/dL, BUN 91 mg/dL, eGFR 12) * Metabolic acidosis (ABG pH 7.13, HCO3 18) * Anemia (Hgb 9.1) * Elevated NT-proBNP (>30,000) * No acute findings on chest X-ray He was managed with BiPAP, aggressive medical therapy for hyperkalemia (IV insulin, dextrose, sodium bicarbonate, albuterol, Lokelma), and IV fluids. Nephrology was consulted for ongoing STEFAN and refractory hyperkalemia. Despite medical management, his renal function and hyperkalemia continued to worsen. He was not a candidate for dialysis per his wishes, and he consistently declined any form of renal replacement therapy. His respiratory status fluctuated, requiring intermittent BiPAP and high-flow oxygen. He was also treated for a COPD exacerbation with steroids and nebulize rs. Cardiac evaluation was limited by his clinical instability, but he had evidence of chronic diastolic dysfunction and volume depletion rather than overload. During the hospital course, Mr. De Oliveira became increasingly fatigued and intermittently refused respiratory support. After discussions with his and family, the decision was made to transition to comfort measures only. All disease-directed interventions, labs, and imaging were discontinued. He was provided with p.r.n. morphine and diazepam for comfort. Airvo was used for palliation, but was discontinued as tolerated. Mr. De Oliveira peacefully at 21:46 on 07/09/2025, with his at the bedside. Marti Diagnoses at End of Life * Acute on chronic respiratory failure (hypoxic and hypercapnic) due to COPD e xacerbation * Acute kidney injury, likely on CKD, multifactorial (volume depletion, NSAID/ACEi use, age, vascular disease) * Refractory hyperkalemia * Metabolic acidosis * Anemia of chronic disease and acute illness * Chronic left lower extremity edema (post-hip repair) * DNR/DNI status, comfort measures at end of life Summary Mr. De Oliveira? hospital course was marked by progressive multi-organ dysfunction, refractory to maximal medical therapy, in the setting of advanced age and multiple comorbidities. He and his family were clear in their wishes to avoid dialysis and invasive interventions. The transition to comfort care was in accordance with his goals and values. He comfortably with family present. Time of :?21:46, 07/09/2025 Additional Data Confirmation of as documented by pronouncing clinician: Pupillary Reflex, Palpable Pulses, Response to Stimuli, Heart Tones and Breath Sounds Name of Provider Notified: sandrine Time Provider Notified: 21:50 Provider Requests Autopsy: No Family Requests Autopsy: No Pa[employer] Marketing Analyst Notified: Yes Date [facility] Notified of : 07/09/25 Time [facility] Notified of : 22:00
== END 2025-07-09 21:46 | disposition expired | DRG 190 ==
LOC: ANHED 19:21 → ANHIMU 21:22
PROVIDERS: Internal Medicine; Internal Medicine Nephrology; Admitting Provider Internal Medicine; Emergency Provider Emergency Medicine; PCP Family Medicine; Visit Provider Internal Medicine
DX: J44.1 Chronic obstructive pulmonary disease with (acute) exacerbation (principal); E43 Unspecified severe protein-calorie malnutrition; J96.21 Acute and chronic respiratory failure with hypoxia; E87.21 Acute metabolic acidosis; N17.9 Acute kidney failure, unspecified; I50.32 Chronic diastolic (congestive) heart failure; N40.0 Benign prostatic hyperplasia without lower urinary tract symptoms; E87.5 Hyperkalemia; E78.5 Hyperlipidemia, unspecified; I95.9 Hypotension, unspecified; I11.0 Hypertensive heart disease with heart failure; I73.9 Peripheral vascular disease, unspecified; K21.9 Gastro-esophageal reflux disease without esophagitis; E53.8 Deficiency of other specified B group vitamins; E55.9 Vitamin D deficiency, unspecified; R60.0 Localized edema; D64.89 Other specified anemias; X58.XXXS Exposure to other specified factors, sequela; F17.210 Nicotine dependence, cigarettes, uncomplicated; F10.90 Alcohol use, unspecified, uncomplicated; Z66 Do not resuscitate; Z96.1 Presence of intraocular lens; Z79.82 Long term (current) use of aspirin; Z86.79 Personal history of other diseases of the circulatory system; S72.009S Fracture of unspecified part of neck of unspecified femur, sequela; Z68.20 Body mass index [BMI] 20.0-20.9, adult; Z51.5 Encounter for palliative care
CPT/HCPCS: 36415; 36600; 71045; 76770; 80048; 80053; 80069; 82375; 82607; 82728; 82746; 82805; 82948; 83050; 83540; 83550; 83605; 83880; 85018; 85025; 85027; 85380; 85610; 85730; 93005; 93971; 94002; 94003; 94640; 96361; 96365; 96366; 96375; 96376; 99291; A9270; C8929; G0378; J0612; J1644; J1756; J1815; J1938; J2270; J2919; J7030; J7070; Q9957